=== PATIENT | female | born 1940 | race Caucasian/White ===

== ENCOUNTER 2019-01-31 11:10 | Inpatient (IN) ==
[2019-01-25 14:53] LABS: BASO# 0.03 X1000 (0.0-0.2); BASO% 0.6 % (0.0-0.8); EOS# 0.16 X1000 (0.0-0.7); EOS% 3.4 % (0.0-10.0); HEMOGLOBIN 12.6 g/dL (12.0-16.0); LYMPH% 23.1 % (20.5-51.1); MCH 30.4 PG (27-31); MCHC 33.2 g/dL (33-37); MCV 91.6 FL (81-99); MONO# 0.45 X1000 (0.11-0.59); MONO% 9.4 % (1.7-9.3); MPV 11.4 FL (7.4-10.4); NEUT# 3.03 X1000 (1.4-6.5); NEUT% 63.5 % (42.2-75.2); PLT 103 X1000 (130-400); RBC 4.15 XMIL (4.2-5.4); WBC 4.77 X1000 (4.8-10.8)
--- NOTE | 2019-01-25 15:02 | EKG Report ---
Test Performed on : 01/25/2019 2:28:00 PM Test Reason : PAT Blood Pressure : / mmHG Vent. Rate : 086 BPM Atrial Rate : 086 BPM P-R Int : 170 ms QRS Dur : 094 ms QT Int : 392 ms P-R-T Axes : 068 -06 042 degrees QTc Int : 469 ms Sinus rhythm. with frequent and consecutive premature ventricular complexes. Low voltage QRS Cannot rule out Anterior infarct (cited on or before 09-SEP-2016) Abnormal ECG When compared with ECG of 09-SEP-2016 15:32, premature ventricular complexes. are now present Nonspecific T wave abnormality no longer evident in Inferior leads T wave inversion no longer evident in Lateral leads Confirmed by Lazaro PARMAR, Rufus Styles ([id number]) on 01/26/2019 8:21:12 AM
[2019-01-25 15:14] LABS: AGAP 9; ALBUMIN 3.4 g/dL (3.5-5.0); ALKALINE PHOSPHATASE 194 U/L (32-104); BUN 14 mg/dL (8-22); CALCIUM 8.7 mg/dL (8.8-10.2); CHLORIDE 95 mmol/L (98-107); COSMO 278; CREATININE 0.8 mg/dL (0.5-0.9); ESTIMATED GFR > 60; GLUCOSE 241 mg/dL (70-104); GOT 28 U/L (10-30); GPT 16 U/L (10-36); POTASSIUM 3.7 mmol/L (3.5-5.1); SODIUM 135 mmol/L (136-145); TCO2 31 mmol/L (25-35); TOTAL BILIRUBIN 0.68 mg/dL (0.20-1.00); TOTAL PROTEIN 6.9 g/dL (6.3-8.3)
[2019-01-31] MEDS ORDERED: ENTEREG ONE (11:28)
[2019-01-31] MEDS ORDERED: LR 1,000 ML ONE (11:28)
[2019-01-31] MEDS ORDERED: INVANZ 1 GM/NS 1 GM/50 ML IVPB ONE (11:28)
[2019-01-31] MEDS ORDERED: DIPRIVAN 1% ONE (12:26)
[2019-01-31] MEDS ORDERED: NORCURON ONE (12:27)
[2019-01-31] MEDS ORDERED: XYLOCAINE-MPF 2% ONE (12:27)
[2019-01-31] MEDS ORDERED: ZOFRAN ONE ×2 (12:27→17:37)
[2019-01-31] MEDS ORDERED: QUELICIN (DOSE) ONE (12:27)
[2019-01-31] MEDS ORDERED: DECADRON ONE (12:27)
[2019-01-31] MEDS ORDERED: SODIUM CHLORIDE 0.9% 10 ML ONE ×2 (12:30→12:38)
[2019-01-31] MEDS ORDERED: FENTANYL ONE (12:32)
[2019-01-31] MEDS ORDERED: EXPAREL 1.3% ONE (12:38)
[2019-01-31] MEDS ORDERED: MARCAINE 0.25% PF ONE (12:38)
[2019-01-31 14:05] LABS: URINE SOURCE CATH
[2019-01-31] MEDS ORDERED: D50W SYRINGE ONE (14:08)
[2019-01-31 14:10] LABS: BILIRUBIN URINE NEGATIVE (NEGATIVE); BLOOD URINE NEGATIVE (NEGATIVE); COLOR YELLOW; GLUCOSE URINE NEGATIVE (NEGATIVE); KETONE URINE TRACE mg/dL (NEGATIVE); LEUKOCYTES URINE NEGATIVE (NEGATIVE); NITRITE URINE NEGATIVE (NEGATIVE); PH URINE 6.5; PROTEIN URINE TRACE mg/dL (NEGATIVE); TURBIDITY URINE CLEAR (CLEAR); UROBILINOGEN URINE NORMAL (NORMAL)
[2019-01-31 14:11] LABS: UR EPITHELIAL CELLS <10 /HPF (<10); URINE BACTERIA NEGATIVE /HPF; URINE RBC 20-40 /HPF (<10); URINE WBC <10 /HPF (<10)
[2019-01-31 14:29] LABS: INR 1.33; PROTIME 17.5 Seconds (11.0-16.0)
[2019-01-31] MEDS ORDERED: NEO-SYNEPHRINE ONE (14:53)
[2019-01-31] MEDS ORDERED: LR 500 ML ONE (17:37)
[2019-01-31] MEDS ORDERED: D5 1/2 NS 1,000 ML ONE (18:15)
[2019-01-31] MEDS ORDERED: COMPAZINE PR ONE (18:15)
[2019-01-31] MEDS ORDERED: D5 1/2 NS 1,000 ML IV SCH (18:47)
[2019-01-31 19:39] LABS: HEMATOCRIT 33.3 % (37.0-47.0)
[2019-01-31 19:49] LABS: INR 1.33; PROTIME 17.5 Seconds (11.0-16.0)
[2019-01-31] MEDS: DILAUDID IV PRN (20:04)
--- NOTE | 2019-01-31 21:08 | OPERATIVE NOTE ---
PROCEDURE DATE: 01/31/2019 PROCEDURE: Total abdominal colectomy with ileal rectostomy and diverting ileostomy. SURGEON: Dr. Joe Myers. FIRST ASSISTANT: Dr. Chairez, who was very helpful in dissection and stapling of the anastomosis, as well as Dr. Baker who assisted in dissection as well in retraction. 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 POSTOPERATIVE DIAGNOSIS: Synchronous cecal and rectal cancer. INDICATIONS: This is an 78-year-old with a cancer of the cecum and the cancer of the proximal rectum by colonoscopy. She also has known cirrhosis. DESCRIPTION OF PROCEDURE: Satisfactory general endotracheal anesthesia was achieved. The abdomen was prepped and draped in a sterile fashion. The patient was in Rob stirrups. We made a midline incision and carried our incision through the subcutaneous tissues and through the fascia. We encountered various venous collaterals which required suture ligating. After we entered the abdominal cavity, the skin incision there were a lot of adhesions up to the anterior abdominal wall from the omentum and they were vascularized with these enlarged veins. We had to carefully dissect this away from the abdominal wall using suture ligatures as well as the LigaSure device. We then began mobilizing the cecum. We finally were able to use electrocautery in the retroperitoneum to pull the cecum up out of the retroperitoneum. The mesentery was quite thick and used the LigaSure to go through it. We progressed from the cecum distally up to the hepatic flexure. We then turned our attention the pelvis and had to incise the white line of Toldt on both sides, dissected into the pelvis again. There was evidence of previous surgery from her uterus cancer, lots of scarring. We incised the perineum and dissected distal to the perineum using the LigaSure and the cautery on each side. There was raw tissue circumferentially causing some unusual amount of bleeding. We continued to dissect and then finally reached what we thought might be far enough, probably about 10 to 12 cm. We divided the colon both proximally and distally and took out the sigmoid, opened it, but there was no tumor there. Dr. Chairez it was at this point had looked up the rectum and identified the tumor which was really about 6 to 7 cm. So, we left the Allis on there and went back up and continued to dissect the transverse colon. We mobilized the splenic flexure, mobilized the hepatic flexure. We divided the mesentery of the omentum off the transverse colon, being certain that none of the venous collaterals were bleeding. We then went from proximal to distal and began incising the mesentery. We ligated the ileocolic vessels with 2-0 silk suture ligature after clamping them with a Mary. We continued with the LigaSure up in and then ligated the right colic vessels with a suture ligature, continued to the middle colic and ligated them with 2-0 silk suture ligature, divided them and continue with the LigaSure over to the left colic where we divided it and used a 2-0 silk suture ligature and carried our incision down the mesentery all the way to where we had divided the sigmoid colon proximally. We handed off the abdominal colon. We packed off the left upper quadrant and the right upper quadrant. We then turned our attention distally. We dissected down further into the pelvis until we could identify the ink and palpate the tumor. There were a lot of adhesions anterior from the previous hysterectomy. We then were able to get past the tumor and used a TA-45 blue stapler to staple the colon and the rectum and divided it, and we did identify the tumor in the specimen and we did appear to have about a 2 cm margin distally. We mobilized the ileum. We made a small ileostomy distally, introduced a 28 EEA anvil and brought it out the anti mesenteric border of the ilium placed a 3-0 silk pursestring around that spot to secure so it would not tear anymore. We then stapled off the open end we introduced the anvil, we oversewed the staple line with 3-0 silks in a Lembert fashion. The 25 and 28 dilators were passed from below by Dr. Chairez after the staple line. We then introduced the EEA stapler and extended the stem. We then attached the anvil to the stem of the stapler and the tissue was then approximated until the green was seen within the window. Dr. Chairez then stapled the anastomosis together. Upon completion of the stapling there were 2 good rings evident. I placed one 3-0 silk horizontal mattress stitch where the tissue looked rather attenuated. I then held the proximal occlusion and air was pumped into the rectum and there was no air leak whatsoever at the anastomosis. The patient did evacuate air around the proctoscope. So, the anastomosis appeared secure; however, because of the difficulty the dissection the blood loss in the previous pelvic surgery I felt it would be best that we did a diverting ileostomy and place a drain. We irrigated out the pelvis. We achieved adequate hemostasis. We did have to place some Surgicel Snow in the pelvis because of the raw surfaces. I did place a drain into the pelvis deep posterior to the anastomosis, brought out to the left lower quadrant and secured to the skin with 2-0 silk. Hemostasis was okay everywhere else. We did make a right lower quadrant incision, excised a kiana of skin carried this incision through the subcutaneous tissue and divided the anterior rectus sheath and then spread the muscles, made a posterior rectus sheath incision that would admit a couple of fingers without difficulty. We then were able to deliver the loop of the ilium probably about 10 inches proximal to the anastomosis out through the skin and a bridge was placed underneath it to hold it in position. We then proceeded to close the peritoneum with 2-0 chromic. We closed the fascia with running #2 Prolene, irrigated the subcutaneous tissue and closed the skin with ann. We covered up the staple line closure. I then placed some 3-0 Polysorb stitches from the loop of ileum to the skin and then placed an appliance flange around the hole in the abdominal wall. We opened the stoma with the electrocautery longitudinally and then placed the bag over it. The bridge stayed in position. Sterile dressing was applied. She tolerated it well. 1600 mL of blood loss was present. The patient received 3 units of blood and 2 units of fresh frozen during the case. She was sent to the recovery room in satisfactory condition. cc: MD Jalil Valerio MD Robert C. Walker, MD
[2019-01-31] MEDS ORDERED: NS 500 ML IV ONE (23:43)
[2019-01-31] MEDS ORDERED: NS 1,000 ML IV SCH (23:45)
[2019-02-01] MEDS: D5 NS 1,000 ML IV SCH ×2 (00:07→00:08)
[2019-02-01] MEDS: PERIDEX MT SCH ×3 (00:15→20:13)
[2019-02-01] MEDS: HUMALOG SUBQ SCH ×6 (00:16→19:39)
[2019-02-01 00:30] LABS: BASO# 0.01 X1000 (0.0-0.2); BASO% 0.1 % (0.0-0.8); HEMATOCRIT 31.5 % (37.0-47.0); HEMOGLOBIN 10.3 g/dL (12.0-16.0); IMM GRAN# 0.03 X1000 (0.0-0.04); IMM GRAN% 0.2 % (0.0-0.5); LYMPH# 0.45 X1000 (1.2-3.4); LYMPH% 2.9 % (20.5-51.1); MCH 29.7 PG (27-31); MCHC 32.7 g/dL (33-37); MCV 90.8 FL (81-99); MONO# 0.93 X1000 (0.11-0.59); MPV 11.5 FL (7.4-10.4); NEUT# 14.12 X1000 (1.4-6.5); NEUT% 90.8 % (42.2-75.2); PLT 101 X1000 (130-400); RBC 3.47 XMIL (4.2-5.4); RDW 15.6 % (11.5-14.5); WBC 15.54 X1000 (4.8-10.8)
[2019-02-01 00:38] LABS: CALCIUM 7.8 mg/dL (8.8-10.2); CREATININE 0.9 mg/dL (0.5-0.9); POTASSIUM 4.3 mmol/L (3.5-5.1)
[2019-02-01] MEDS ORDERED: NS 500 ML IV ONE (02:02)
--- NOTE | 2019-02-01 05:40 | Diag Imaging Result Doc PS360 ---
EXAM: CHEST-PORTABLE HISTORY: elevated WBC TECHNIQUE: Portable chest single view COMPARISON: 10/20/2018 FINDINGS: Poor inspiratory effort. The heart is not enlarged. No consolidation. No pleural effusions or lung nodules identified. IMPRESSION: No pneumonia. Electronically signed by Diego Pina 02/01/2019 5:38 AM
[2019-02-01] MEDS ORDERED: MAGNESIUM SULFATE 2 GM/S.W.I. 2 GM/50 ML IVPB IV ONE ×2 (06:10→13:30)
[2019-02-01 06:32] LABS: BASO# 0.01 X1000 (0.0-0.2); BASO% 0.1 % (0.0-0.8); HEMATOCRIT 29.3 % (37.0-47.0); HEMOGLOBIN 9.6 g/dL (12.0-16.0); LYMPH# 0.65 X1000 (1.2-3.4); LYMPH% 4.6 % (20.5-51.1); MCH 30.4 PG (27-31); MCHC 32.8 g/dL (33-37); MCV 92.7 FL (81-99); MONO# 0.82 X1000 (0.11-0.59); MONO% 5.9 % (1.7-9.3); MPV 11.9 FL (7.4-10.4); NEUT# 12.52 X1000 (1.4-6.5); NEUT% 89.4 % (42.2-75.2); PLT 87 X1000 (130-400); RBC 3.16 XMIL (4.2-5.4); RDW 15.7 % (11.5-14.5)
[2019-02-01 06:48] LABS: CALCIUM 7.3 mg/dL (8.8-10.2); CREATININE 1.1 mg/dL (0.5-0.9); POTASSIUM 4.4 mmol/L (3.5-5.1)
--- NOTE | 2019-02-01 07:04 | EKG Report ---
Test Performed on : 02/01/2019 06:54:46 AM Test Reason : eval rhythm Blood Pressure : / mmHG Vent. Rate : 084 BPM Atrial Rate : 084 BPM P-R Int : 176 ms QRS Dur : 098 ms QT Int : 408 ms P-R-T Axes : 059 004 041 degrees QTc Int : 482 ms Normal sinus rhythm. Low voltage QRS Cannot rule out Inferior infarct (cited on or before 31-JAN-2019) Cannot rule out Anterior infarct (cited on or before 09-SEP-2016) Abnormal ECG When compared with ECG of 31-JAN-2019 21:37, (Unconfirmed) Serial changes of evolving Inferior infarct present Confirmed by Lazaro PARMAR, Rufus Styles ([id number]) on 02/01/2019 9:07:15 AM
[2019-02-01] MEDS: DILAUDID IV PRN ×3 (07:33→20:54)
[2019-02-01] MEDS: POTASSIUM CHLORIDE 10 MEQ in 1/2 NS 1,000 ML IV SCH ×3 (08:05→23:54)
[2019-02-01] MEDS: ENTEREG PO SCH ×2 (08:29→20:13)
[2019-02-01] MEDS: LANTUS INSULIN SUBQ SCH (08:29)
[2019-02-01] MEDS: ALDACTONE PO SCH (08:29)
--- NOTE | 2019-02-01 09:16 | PROGRESS NOTE ---
DATE: 02/01/2019 SUBJECTIVE: This patient is resting in bed, she is complaining of abdominal pain but she is completely alert and oriented x3. It is reported a low urine output. She has been getting fluids. It looks like she has a positive balance of 4.5 L. As per the patient, she has a history of valve replacement, but she is not on anticoagulation so probably is a bioprosthetic valve. Vital signs are stable with some episodes of borderline-low pressure with a systolic blood pressure in the 90s. I am not quite sure if she had episodes of low blood pressure during the surgical procedure. OBJECTIVE: Vital Signs: Temperature 98.3 degrees, pulse 78, respiratory rate 14, blood pressure 97/47, oxygen saturation 96% on 2 L of nasal cannula. HEENT: Head normocephalic. No trauma. PERRLA. Neck: Supple. No JVD. No masses. Central trachea. Chest: Clear to auscultation. No wheezing. No rales. Mild decreased breath sounds at the bases. Abdomen: Soft, moderately distended. She does have some mild bowel sounds mostly at the level of the left upper quadrant. No signs of peritoneal irritation. She did have a dressing covering the mid part of the abdomen as well as the sides, she has a drain coming out from the left side of the abdomen and she has an ileostomy on the right side. Extremities: Trace edema. No clubbing, no cyanosis. Neurological: The patient is alert and oriented x3. No focal neurological deficits. LABORATORY DATA: WBC 14, hemoglobin 9.6, hematocrit 29.3, platelets 87,000. Sodium 142, potassium 4.4, chloride 110, bicarbonate 24, BUN 23, creatinine 1.1, glucose 312, calcium 7.3, magnesium 1.5. ASSESSMENT AND PLAN: 1. Synchronous cecal and rectal cancer, status post total abdominal colectomy with ileorectostomy and diverting ileostomy, postoperative day #1. This patient is complaining of abdominal pain, the drain is working fine as well as the ileostomy. She has some bowel sounds but they are decreased, no signs of peritoneal irritation. Abdomen is moderately distended, painful to palpation. Surgery Department on board. All the dressings are clean. No signs of bleeding at this moment. 2. History of breast cancer and uterine cancer, aware. 3. History of valve replacement, likely bioprosthetic, I think is mitral valve. We will continue with same management with an echocardiogram this morning, pending report. Cardiology Department has been consulted. I do not think we have a history of CHF on this lady. Echocardiogram done in 2016 showed a normal ejection fraction, and at that time she had a severe aortic stenosis. So, probably the valve replaced is the aortic valve and not the mitral valve. 4. History of liver cirrhosis, nonalcoholic. We will monitor for now. 5. Type 2 diabetes. I will put this patient on a low dose of insulin Lantus, and I will continue to pattern of blood sugar and sliding scale insulin, she is also getting some IV fluids. 6. Borderline-low blood pressure, this patient has been placed on IV fluids which I will continue for now. I will let Cardiology Department to decide if she needs to continue or not with this amount of fluid. So far, we have a positive balance of 4.5 L, but the urine output is low. 7. Acute kidney injury, continue with IV fluids. We will monitor this closely. Probably related to low blood pressure. I am not quite sure if this patient had an episode of low blood pressure during the procedure. 8. Hypomagnesemia, we have replaced electrolytes. CRITICAL CARE TIME: 40 minutes. cc: Smith Stacy MD
--- NOTE | 2019-02-01 09:26 | EKG Report ---
Test Performed on : 01/31/2019 9:37:32 PM Test Reason : CCU. No order in [place] Blood Pressure : / mmHG Vent. Rate : 088 BPM Atrial Rate : 088 BPM P-R Int : 176 ms QRS Dur : 106 ms QT Int : 502 ms P-R-T Axes : 062 -09 -46 degrees QTc Int : 607 ms Normal sinus rhythm. Low voltage QRS Possible Inferior infarct (cited on or before 25-JAN-2019) Anterior infarct (cited on or before 09-SEP-2016) Lateral injury pattern Prolonged QT ACUTE AR / STEMI Abnormal ECG When compared with ECG of 31-JAN-2019 21:36, (Unconfirmed) Serial changes of Inferior infarct present Confirmed by Lazaro PARMAR, Rufus Styles ([id number]) on 02/02/2019 10:18:31 AM
--- NOTE | 2019-02-01 10:17 | GENERAL SURGERY PROGRESS NOTE ---
DATE: 02/01/2019 DATE AND TIME OF EXAM: Date is 02/01 at 0850 hours in the morning. SUBJECTIVE: She is postop day 1 after total abdominal colectomy with an ileal rectostomy and a proximal diverting ileostomy. Her heart rate is 90, blood pressure is 103/64. She is awake, alert and oriented. Her urine output has been somewhat marginal overnight, around 215 mL. She has put quite a bit of serous fluid out her YOLI drain. LABORATORY DATA: White count 14,000, hemoglobin 9.6, hematocrit 29.3. Sodium 142, potassium 4.2, chloride 110, carbon dioxide 24. BUN 23, creatinine 1.1. Glucose is over 300. ASSESSMENT: 1. Postoperative abdominal colectomy with ileal rectostomy. Her stoma is viable. Her hemodynamics were satisfactory. 2. Ventricular ectopy. She has seen Dr. Galvan in the past. He will evaluate her today. She has had an echocardiogram this morning. Her potassium is 4.4. Troponin level was okay at less than 0.10. Magnesium level is 1.5. 3. Cirrhosis of the liver. There has been no evidence of ongoing bleeding. Her hemoglobin is 9.6 and hematocrit 29; some of that is dilutional. We will check her clotting studies in the morning. PLAN: The plan will be to remove her dextrose from her IV fluids in view of her elevated blood glucose. Also convert her to half-normal saline in view of the fact that she does have cirrhosis and will tend to dump fluid into her abdominal cavity and form ascites. Will recheck her labs tomorrow. Will put her back on her Aldactone and she is on Entereg. cc: MD Smith Patel MD
[2019-02-01] MEDS: LASIX PO SCH (14:00)
--- NOTE | 2019-02-01 14:10 | CARDIOLOGY CONSULTATION ---
DATE: 02/01/2019 HISTORY OF PRESENT ILLNESS: Ms. Hernandez is an 78-year-old, lady, who underwent surgery. Cardiology was consulted for abnormal EKG. Electrocardiogram revealed artifact. There were no acute ST-T changes. Electrocardiogram this morning revealed normal sinus rhythm. Cannot rule out old septal AZ and inferior Q-waves were noted. No acute ST-T changes. Patient does not complain of chest pain. Telemetry revealed normal sinus rhythm. Premature ventricular beats were noted. The patient was admitted. He has cecal and rectal cancer. He underwent a total abdominal colectomy with ileal rectostomy and diverting ileostomy on 01/31/2019. The patient has been advanced to [facility]FO Labs currently. She does not complain of any chest pain. No worsening shortness of breath. Patient complains of feeling weak. PAST MEDICAL HISTORY: Aortic stenosis status post TAVR on 10/28/2016 with Felix KATHERINE 23 mm aortic valve, hypertension, diabetes, cirrhosis of liver without mention of alcohol, history of breast cancer, obesity. HOME MEDICATIONS: Included Lantus insulin, Arimidex, Lasix 40, spironolactone 25, metolazone as needed, enteric-coated aspirin and Prilosec. ALLERGIES: She is allergic to morphine, Phenergan, tetanus. SOCIAL HISTORY: She does not smoke, does not drink. PHYSICAL EXAMINATION: Vital Signs: Blood pressure was 103/45. Soft systolic murmur noted. Respiratory system: Normal air entry. There are no crepitations or rhonchi. Abdomen: Tender from recent surgery. Central nervous system: Alert, moving all 4 extremities. Detailed central nervous system examination not performed. ASSESSMENT AND PLAN: 1. David Butt is an 78-year-old lady, who underwent a total abdominal colectomy with ileal rectostomy and diverting ileostomy for cecal and rectal cancer. From a cardiac standpoint, she has had transcatheter aortic valve replacement on 10/28/2016, has history of hypertension, diabetes. Her telemetry reveals normal sinus rhythm with frequent premature ventricular beats. Her magnesium was 1.5. Potassium was normal. We will replete her magnesium. 2. She is positive for intravenous fluids, more than 4 liters. Given this we will restart her on Lasix 40 and continue with the Aldactone and aspirin. She had an echocardiogram done today, which will be read shortly. Thank you for the consult. We will follow hospital course. cc: MD Smith Kang MD
--- NOTE | 2019-02-01 15:04 | ECHO REPORT ---
ORDER DATE: 02/01/2019 INDICATION: Arrhythmia, history of aortic stenosis, status post valve replacement. FINDINGS: 1. The right atrium appears normal in size at 3.8 cm. 2. Mild tricuspid regurgitation. RV systolic pressure of 41. 3. Normal RV size and systolic function. 4. Trace pulmonic insufficiency. 5. Mild left atrial enlargement with a dimension of 4.3 cm. 6. No mitral valve prolapse. Trace mitral regurgitation. 7. Normal LV size, end-diastolic dimension of 5.1. Normal wall thicknesses with a posterior and interventricular septal wall thickness of 1.1 cm each. Normal LV systolic function. Estimated EF is 65% with normal wall motion. 8. There is a well-seated prosthetic in the aortic position with a peak and mean gradient of 31 and 17 respectively. There is no evidence of significant perivalvular leak. 9. Aorta appears normal in visualized segments. 10. No pericardial effusion seen. cc: MD Noah Velazquez CRNP Omar J. Sosa-Chirinos, MD
--- NOTE | 2019-02-01 22:31 | CONSULTATION ---
DATE OF CONSULTATION: 01/31/2019 REASON FOR CONSULTATION: EKG changes. HISTORY OF PRESENT ILLNESS: Ms. Hernandez is an 78-year-old female who underwent a total abdominal colectomy with ileal recto-ostomy and diverting ileostomy by Dr. Myers. This was related to having fecal and rectal cancer. Her EKG was reviewed. She was having increased PVCs. There were no acute ST or T-wave changes. The patient had no chest pain. Will order additional laboratory data and follow the patient along with Surgery. PAST MEDICAL HISTORY: 1. Diabetes mellitus type 2. 2. Aortic stenosis. 3. Nonalcoholic cirrhosis. 4. GERD. 5. Kidney stones. 6. Uterine cancer. 7. Breast cancer. PREVIOUS SURGICAL HISTORY: 1. Cholecystectomy. 2. Hysterectomy. 3. Breast lumpectomy. 4. Right total hip arthroplasty. 5. Bilateral cataract surgery 6. Lumbar laminectomy. 7. Umbilical hernia repair. 8. Total colectomy performed on January [address] Myers. 9. Valve replacement (I believe she has a mechanical aortic valve). ALLERGIES: Morphine, Phenergan and tetanus toxoid. SOCIAL HISTORY: No tobacco, alcohol or illicit drugs. FAMILY HISTORY: Mother had diabetes and hypertension. Father had coronary artery disease and valvular disease. MEDICATIONS: 1. Lasix 40 mg p.o. b.i.d. 2. Aspirin 81 mg p.o. daily. 3. Potassium 20 mEq p.o. b.i.d. 4. Omeprazole 20 mg p.o. daily. 5. Lantus sliding scale. 6. Vitamin D 5000 units p.o. daily. 7. Meclizine 25 mg p.o. p.r.n. 8. Spironolactone 25 mg p.o. daily. 9. Metolazone 2.5 mg p.o. daily. 10.Lactulose 10 mg p.o. daily. 11.Magnesium 250 mg p.o. b.i.d. 12.Erythromycin 500 mg p.o. daily. 13.Fluconazole 100 mg p.o. daily. REVIEW OF SYSTEMS: A 14-point review of systems was conducted with the patient. She complained of some abdominal pain at the surgical site but otherwise denied complaints. All other systems were reviewed and found to be negative. Other pertinent positives for consultation are listed above in the HPI. PHYSICAL EXAMINATION: Vital Signs: No clubbing, cyanosis, or edema, 2+ pedal pulses. Genitourinary: No bladder distention. Very scant, concentrated-looking urine draining into Rodriguez bag. Neurologic: Alert and oriented x3. No focal motor deficits. Otherwise nonfocal examination. DIAGNOSTIC DATA: EKG shows increased PVCs, a mildly widened QRS, no acute ST or T-wave abnormality. LABORATORY DATA: Has been ordered and is pending. ASSESSMENT/PLAN: 1. Increased premature ventricular contractions on electrocardiogram. Will check magnesium and potassium and replete if necessary. She has a history of aortic valve replacement, hypertension and diabetes. Will consult Cardiology to follow along with us. 2. Decreased urine output. No recent laboratory data. Will evaluate for elevated BUN and creatinine. Will given the patient a 1-liter bolus at this time, as she is marginally hypotensive as well. She did receive a blood transfusion and fresh frozen plasma after surgery. She is not exhibiting any symptoms of fluid volume overload. 3. Diabetes mellitus with hyperglycemia. Will start the patient on sliding- scale insulin every 4 hours with fingerstick blood sugar. May benefit from addition of long-acting insulin. 4. Status post total colectomy. Continue to monitor her hemoglobin and hematocrit. 5. Further recommendations per patient's clinical course. We thank Dr. Myers for this consultation. Dictated by LYNDSEY Weiss for Aristides Rooney MD I have perfomed a face to face diagnostic evaluation. Labs/ xrays -reviewed. Exam - chest- clear, CV- regular. A/P PVC's . Hyperglycemia- Admit , Monitor on telemetry, Consult cardiology, Monitor Blood, glucose and sliding scale insulin. Dr. Rooney cc: LYNDSEY Weiss MD Omar J. Sosa-Chirinos, MD Crystal V. Walker MTDD
[2019-02-02] MEDS: HUMALOG SUBQ SCH ×6 (01:07→20:32)
[2019-02-02 06:01] LABS: BASO# 0.01 X1000 (0.0-0.2); BASO% 0.1 % (0.0-0.8); EOS# 0.01 X1000 (0.0-0.7); EOS% 0.1 % (0.0-10.0); HEMATOCRIT 28.2 % (37.0-47.0); HEMOGLOBIN 8.9 g/dL (12.0-16.0); LYMPH% 7.4 % (20.5-51.1); MCH 29.9 PG (27-31); MCHC 31.6 g/dL (33-37); MCV 94.6 FL (81-99); MONO% 7.4 % (1.7-9.3); MPV 11.7 FL (7.4-10.4); NEUT# 12.69 X1000 (1.4-6.5); PLT 91 X1000 (130-400); RBC 2.98 XMIL (4.2-5.4); RDW 15.4 % (11.5-14.5); WBC 14.91 X1000 (4.8-10.8)
[2019-02-02 06:12] LABS: INR 1.19; PROTIME 16.1 Seconds (11.0-16.0); PTT 32.1 Seconds (22.3-41.8)
[2019-02-02 06:37] LABS: CALCIUM 7.8 mg/dL (8.8-10.2); MAGNESIUM 2.5 mg/dL (1.5-2.7); POTASSIUM 4.7 mmol/L (3.5-5.1)
[2019-02-02] MEDS: POTASSIUM CHLORIDE 10 MEQ in 1/2 NS 1,000 ML IV SCH ×2 (07:35→16:52)
--- NOTE | 2019-02-02 08:05 | EKG Report ---
Test Performed on : 02/02/2019 07:19:18 AM Test Reason : tachycardia Blood Pressure : / mmHG Vent. Rate : 090 BPM Atrial Rate : 090 BPM P-R Int : 172 ms QRS Dur : 100 ms QT Int : 382 ms P-R-T Axes : 045 016 061 degrees QTc Int : 467 ms Sinus rhythm. with frequent and consecutive premature ventricular complexes. Anterior infarct (cited on or before 09-SEP-2016) Abnormal ECG When compared with ECG of 01-FEB-2019 06:54, premature ventricular complexes. are now present Confirmed by Lazaro PARMAR, Rufus Styles ([id number]) on 02/02/2019 10:23:52 AM
[2019-02-02] MEDS: ENTEREG PO SCH ×2 (08:17→21:13)
[2019-02-02] MEDS: PERIDEX MT SCH ×2 (08:18→21:14)
[2019-02-02] MEDS: ALDACTONE PO SCH (08:18)
[2019-02-02] MEDS: LANTUS INSULIN SUBQ SCH (08:20)
--- NOTE | 2019-02-02 08:21 | Diag Imaging Result Doc PS360 ---
EXAM: CHEST-PORTABLE - 02/02/2019 HISTORY: dyspnea TECHNIQUE: Portable chest COMPARISON: 02/01/2019 FINDINGS: There is elevation right hemidiaphragm similar to prior. There is subsegmental atelectasis at the bilateral lung bases which appears overall slightly increased. The upper lungs appear essentially clear. There is possible tiny bilateral pleural effusions. There is no pneumothorax identified. The right heart border is partially obscured by the elevated hemidiaphragm but heart size appears grossly normal. IMPRESSION: Elevation of right hemidiaphragm similar to prior. Bibasilar subsegmental atelectasis which appears mildly increased from prior. Possible tiny bilateral pleural effusions. Electronically signed by Camacho Acuña 02/02/2019 8:19 AM
--- NOTE | 2019-02-02 08:30 | PROGRESS NOTE ---
DATE: 02/02/2019 SUBJECTIVE: This patient is resting comfortably in bed. She is not complaining of chest pain. She is complaining of some abdominal pain from her surgery. Her urine output has decreased. We started yesterday Lasix 40 p.o. daily recommended by Cardiology Department. Her creatinine increased from admission. Initially, was 0.8, yesterday 1.1, and today is 2. Her urine output dropped to around 50 mL/h, even though she has a positive balance of 6.8 L. Glucose is better controlled. I will continue with the same management. I have requested an evaluation by Gastroenterology Department. OBJECTIVE: Vital Signs: Temperature 98.6 degrees, pulse 78, respiratory rate 15, blood pressure 93/40, and oxygen saturation 96% on 2 L of nasal cannula. HEENT: Head normocephalic. No trauma. PERRLA. Neck: Supple. No JVD. Central trachea. Chest: Decreased breath sounds at the bases. Abdomen: Soft. Generalized tenderness to palpation mostly at the level of the perioperative area and right upper quadrant. No signs of peritoneal irritation. She has a dressing covering the mid part of the abdomen. Her drain has been removed, and she has an ileostomy on the right side that is working fine. Extremities: No edema. No clubbing. No cyanosis. Neurological: The patient is alert. She is oriented x3. No focal neurological deficits. LABORATORY: WBC 14.9, hemoglobin 8.9, hematocrit 28.2, and platelets 91,000. Sodium 138, potassium 4.7, chloride 108, bicarbonate 23, BUN 37, creatinine 2, glucose 129, calcium 7.8, and magnesium 2.5. ASSESSMENT AND PLAN: 1. Synchronous cecal and rectal cancer, status post total abdominal colectomy with ileorectostomy, and diverting ileostomy, postoperative day #2. She is still complaining of abdominal pain, but compared with yesterday she feels better. No signs of peritoneal irritation. Her drain has been removed. She does have some bowel sounds. 2. Acute kidney injury. Upon admission, her creatinine was 0.8 and today is 2. Her urine output decreased to 15 mL/h even though she has a positive balance of 6.8 L. I will continue with the IV fluids for now. She is not symptomatic, and I will let Nephrology Department to evaluate this patient. 3. History of aortic valve replacement. Cardiology Department on board. We will follow their recommendations. No chest pain at this moment. 4. History of breast cancer and uterine cancer, aware. 5. History liver cirrhosis, known alcoholic. We will monitor for now. She has been placed back on Lasix and spironolactone. 6. Type 2 diabetes. She seems to be more stable. We will monitor, and continue with the same management. 7. Borderline low blood pressure. At this moment, I will continue with IV fluids. She has been placed on diuretics by Cardiology Department. She is due for furosemide at 2:00 in the afternoon. I will wait for Nephrology Department evaluation as well. So far, we have a positive balance of 6.8 L. 8. Hypomagnesemia, resolved. 9. Normocytic anemia, stable. We will continue to monitor. CRITICAL CARE TIME: 30 plus minutes. cc: Smith Stacy MD
[2019-02-02] MEDS: DILAUDID IV PRN ×2 (09:01→21:13)
[2019-02-02] MEDS ORDERED: ALBUMIN 25% IV ONE (11:13)
--- NOTE | 2019-02-02 12:11 | GENERAL SURGERY PROGRESS NOTE ---
DATE: 02/02/2019 SUBJECTIVE: She is postop day 2 after a total abdominal colectomy and ileal rectostomy with a diverting ileostomy. OBJECTIVE: Vitals: She is afebrile, heart rate is 82, blood pressure is 85-90 systolic. Lungs: She has clear breath sounds. DIAGNOSTIC DATA: Intake was 3160, output 840. She is putting out fluid in her ileostomy. Her Brenden drain has been removed. She denies any nausea currently. Laboratory data: White count 14,900, hemoglobin 8.9, hematocrit 28. ProTime 16. INR 1.2. PTT 32. Sodium 138, potassium 4.7, chloride 108, carbon dioxide 23, BUN 37, creatinine 2. Sugars are in the low 100s. Magnesium 2.5. ASSESSMENT: 1. Post abdominal colectomy with ileostomy. She is putting fluid out her ileostomy. Her stoma is viable. We will allow her to have some sips of liquids. 2. Ectopy. It seems to have decreased. Her magnesium level is normal. We will continue to monitor that. 3. Acute kidney injury. I am sure this is related to 3rd spacing in her abdominal cavity in addition to her cirrhosis and ascites. So her fluid is simply not staying in her vascular system and we may benefit from using albumin to try to keep her fluid inside her vessels to perfuse her kidney. 4. Cirrhosis of the liver. There is no evidence of bleeding. Her INR, PT and PTT are normal. So, the plan will be to allow her to have sips of liquids. We will continue to monitor her kidney function. I will give her some albumin. cc: MD Smith Patel MD
[2019-02-02 13:54] LABS: URINE SOURCE CATH
[2019-02-02 14:01] LABS: BILIRUBIN URINE NEGATIVE (NEGATIVE); BLOOD URINE SMALL (NEGATIVE); COLOR YELLOW; GLUCOSE URINE NEGATIVE (NEGATIVE); KETONE URINE NEGATIVE (NEGATIVE); LEUKOCYTES URINE MODERATE (NEGATIVE); NITRITE URINE NEGATIVE (NEGATIVE); PROTEIN URINE TRACE mg/dL (NEGATIVE); SP GRAVITY URINE 1.011; TURBIDITY URINE CLEAR (CLEAR); UROBILINOGEN URINE NORMAL (NORMAL)
[2019-02-02 14:07] LABS: UR EPITHELIAL CELLS <10 /HPF (<10); URINE BACTERIA NEGATIVE /HPF; URINE RBC <10 /HPF (<10)
[2019-02-02 14:18] LABS: URINE CASTS NONE SEEN; URINE YEAST NONE SEEN
--- NOTE | 2019-02-02 16:05 | NEPHROLOGY CONSULTATION ---
DATE: 02/02/2019 REASON FOR ADMISSION: To undergo surgery for a total abdominal colectomy with ileorectostomy and diverting ileostomy per Dr. Myers with assistance per Dr. Chairez and Dr. Baker. HPI: The patient has synchronous cecal and rectal cancer with known cirrhosis secondary to these findings, she was scheduled for surgery on the . During her hospital stay, her initial creatinine was 0.9 on admission. It is now up to 2. During surgery, had received fresh frozen plasma and platelets. Initial hemoglobin of 10.3, platelets on the had dropped to 87 and currently are at 91. She has a colostomy bag and drain. First YOLI drain is putting out large amounts. Urinary Rodriguez is putting out approximately 340 ml which is greater than yesterday. Due to these findings, we have been consulted for further workup and evaluation. Renal ultrasound is currently pending. Urine electrolytes are to be sent down. She is currently receiving IV fluid resuscitation. Yesterday she had received 1 L of normal saline IV push during the night for a drop in blood pressure. She currently has half-normal saline with KCl infusing at 125 mL an hour. She has been given Lasix 40 mg daily along with her spironolactone 25 mg daily. We will await our urine electrolytes to determine further fluid resuscitation. She currently is n.p.o. She denies any chest pain or increased work of breathing. No fever or chills. No nausea, vomiting, no diarrhea. She has colostomy bag putting out large amounts of dark colored liquid. She is noted to have some fine tremors to her upper bilateral extremities. Daughter at the bedside, states that these were there prior to her admission. PAST MEDICAL HISTORY: Aortic stenosis status post TAVR on 10/28/2016. She has hypertension, diabetes mellitus type 2, cirrhosis of the liver without mention of alcohol, history of breast cancer, obesity, colon cancer, rectal cancer. SURGICAL HISTORY: Recent TAVR on 10/28/2016 with aortic valve, recent abdominal colectomy with ileorectostomy and diverting ileostomy performed on the . SOCIAL HISTORY: She has a daughter who is attentive to her care. Does not use tobacco, alcohol or illicit drug use. The patient is a DNR level 1. FAMILY HISTORY: Noncontributory. ALLERGIES: Listed as codeine, morphine, promethazine hydrochloride, tetanus and diphtheria toxoids. HOME MEDICATIONS: Include: 1. Lantus. 2. Arimidex. 3. Lasix. 4. Spironolactone. 5. Metolazone. 6. Enteric-coated aspirin. 7. Prilosec. REVIEW OF SYSTEMS: Times 10 with pertinent positives listed above in the HPI. MOST RECENT VITAL SIGNS: Her temperature 98.6, blood pressure at the time of exam 110/41, heart rate 84, respirations are 22. She is currently on 2 L nasal cannula. The last recorded saturation is 95%. She has had 3160 in, 840 out. She is in a 6.8 L fluid positive balance in the last 48 hours. LABORATORY DATA: Sodium is 138, potassium 4.7, chloride 108, CO2 23, BUN 37, creatinine 2. Her glucose is 129. Her anion gap is 7, calcium is 7.8, magnesium is 2.5. Her white count 14.91, hemoglobin 8.9, hematocrit 28.2, platelet count is 91,000 today. Her coagulation indicates a PT is 16.1, INR 1.19, PTT 32.1. Urinalysis is positive for proteinuria, ketones with urine electrolytes pending. PHYSICAL EXAMINATION: General: This is an 78-year-old white female. She is resting quietly. The head of the bed is elevated. She appears chronically ill. She is in no acute distress. Skin: Warm and dry. HEENT: Normocephalic, atraumatic. Conjunctiva is pale. She has EPIFANIO. Mucous membranes are dry. Neck: Supple. Trachea midline. No evidence of JVD. Cardiovascular: She is regular rate and rhythm on the monitor. She has a systolic murmur present. Lungs: Clear to auscultation bilaterally, equal excursion on O2. Abdomen: Tender to touch. Dressing remains to the right mid quadrant. She has an ostomy bag to her right upper quadrant, YOLI drain to the right lower. Perianal area not inspected. Genitourinary: Not inspected. Rodriguez catheter is in place with dark yellow urine in the bag. Extremities: She currently has no edema. No clubbing or cyanosis. Neurological: She is alert to person and to place. She does have fine tremors to her bilateral upper extremities noted with increase with purposeful movement. ASSESSMENT AND PLAN: 1. Acute kidney injury. This could be multifactorial secondary to fluid volume depletion. We will wait for urine electrolytes to indicate if we need to have further fluid volume resuscitation. Agree with continuing her IV fluids at 125 mL an hour with potassium replacement. May need to hold 1 of her diuretic medications during her hospital stay and monitor her electrolytes on a daily basis. No indications for intervention in regards with changing antibiotics or dialysis intervention. 2. Electrolytes and acid-base balance. These are acceptable. 3. Anemia. This remains stable. 4. Leukocytosis. Patient's white count has been up to 14.91. We will defer to the primary care team and surgery team for placement on antibiotics. We will evaluate renal dosing when done. 5. Status postop day #2 per abdominal colectomy, ileorectostomy and diverting ileostomy. This is being followed by Dr. Myers. I would like to thank you for allowing us to follow with this patient. Dictated by LYNDSEY Gonzales for Donny Landin MD cc: LYNDSEY Gonzales MD Omar J. Sosa-Chirinos, MD [facility]
[2019-02-02] MEDS: LASIX PO SCH (17:21)
--- NOTE | 2019-02-02 18:31 | Diag Imaging Result Doc PS360 ---
EXAM: US RENAL 2 (RETROPER) COMPLETE - 02/02/2019 HISTORY: ANGELINE TECHNIQUE: Bilateral renal ultrasound COMPARISON: None. FINDINGS: The right kidney measures 12.2 x 5 x 5.7 cm in size, with cortical thickness of approximately 0.9 cm. The left kidney measures 11.3 x 4.6 x 4.4 cm in size, with cortical thickness of approximately 1 cm. There is mild fullness of the right renal collecting system. There is no left hydronephrosis identified. There is no renal mass or stone identified. The urinary bladder is not well enough visualized for evaluation due to limited distention of the lumen artifacts from nearby bowel gas. There is apparent ascites noted the right upper quadrant abdomen. IMPRESSION: Possible mild right hydronephrosis. No other visible renal abnormality. There is apparent ascites noted at the right upper quadrant abdomen. Electronically signed by Camacho Acuña 02/02/2019 6:28 PM
[2019-02-03] MEDS: POTASSIUM CHLORIDE 10 MEQ in 1/2 NS 1,000 ML IV SCH (00:37)
[2019-02-03] MEDS: DILAUDID IV PRN ×3 (00:40→20:36)
[2019-02-03] MEDS: HUMALOG SUBQ SCH ×5 (00:41→15:33)
[2019-02-03 06:35] LABS: ALB/GLOB RATIO 1.1; ALBUMIN 2.5 g/dL (3.5-5.0); CALCIUM 7.2 mg/dL (8.8-10.2); CREATININE 1.9 mg/dL (0.5-0.9); POTASSIUM 5.4 mmol/L (3.5-5.1); TOTAL BILIRUBIN 0.61 mg/dL (0.20-1.00); TOTAL PROTEIN 4.7 g/dL (6.3-8.3)
[2019-02-03 07:01] LABS: EOS# 0.03 X1000 (0.0-0.7); EOS% 0.4 % (0.0-10.0); HEMATOCRIT 25.3 % (37.0-47.0); HEMOGLOBIN 8.1 g/dL (12.0-16.0); LYMPH# 0.62 X1000 (1.2-3.4); MCH 29.7 PG (27-31); MCV 92.7 FL (81-99); MONO# 0.57 X1000 (0.11-0.59); MONO% 8.3 % (1.7-9.3); MPV 10.8 FL (7.4-10.4); NEUT# 5.65 X1000 (1.4-6.5); NEUT% 82.3 % (42.2-75.2); PLT 63 X1000 (130-400); RBC 2.73 XMIL (4.2-5.4); RDW 14.7 % (11.5-14.5); WBC 6.87 X1000 (4.8-10.8)
[2019-02-03] MEDS: 1/2 NS 1,000 ML IV SCH ×2 (08:06→21:29)
[2019-02-03] MEDS: ENTEREG PO SCH ×2 (08:06→20:22)
[2019-02-03] MEDS: ALDACTONE PO SCH (08:07)
[2019-02-03] MEDS: PERIDEX MT SCH ×2 (08:07→20:22)
[2019-02-03] MEDS: LASIX PO SCH (08:07)
[2019-02-03] MEDS: LANTUS INSULIN SUBQ SCH (08:25)
--- NOTE | 2019-02-03 11:39 | PROGRESS NOTE ---
DATE: 02/03/2019 SUBJECTIVE: The patient is resting comfortably in bed. She is not complaining of any specific pain today. Some abdominal discomfort, soreness. Her urine output increased a little bit in the past 24 hours. We will stop the Lasix, and we will continue with IV fluids. OBJECTIVE: Vital Signs: Temperature 98.6 degrees, pulse 71, respiratory rate 12, blood pressure 110/43, oxygen saturation 97% on 2 L of nasal cannula. HEENT: Head normocephalic. No trauma. PERRLA. Neck: Supple. No JVD. No masses. Central trachea. Chest: Decreased breath sounds at the bases. Abdomen: Soft. Generalized tenderness to palpation, mostly at the level of the perioperative area and right upper quadrant. No signs of peritoneal irritation. She has a dressing covering the mid part of the abdomen. Her drain has been removed, and she has an ileostomy on the right side that is working fine. Extremities: No edema, no clubbing, no cyanosis. Neurological: The patient is alert and oriented x3. No focal deficits, but generalized weakness. LABORATORY DATA: WBC 6.8, hemoglobin 8.1, hematocrit 25.3, platelets 63,000. Sodium 136, potassium 5.4, chloride 108, bicarbonate 22, BUN 42, creatinine 1.9, glucose 132, calcium 7.2. AST 22, ALT 13, alkaline phosphatase 83, albumin 2.5. ASSESSMENT AND PLAN: 1. Synchronous cecal and rectal cancer, status post total abdominal colectomy with ileostomy and diverting ileostomy, postoperative day number 2. She is still complaining of abdominal pain, but compared with the previous days, she is better. No signs of peritoneal irritation. Drain has been removed. She does have some bowel sounds. 2. Acute kidney injury. She is making a little bit more of urine. She has a positive balance of 8 liters. We will stop the furosemide, and we will continue with fluids. Case has been discussed with Nephrology Department. 3. History of aortic valve replacement. Cardiology on board. Continue with the same management. 4. History of breast cancer and uterine cancer. Aware. 5. History of nonalcoholic liver cirrhosis. We will continue to monitor for now. Continue only with spironolactone. We will hold her Lasix. 6. Type 2 diabetes. She seems to be stable with the current dose of Lantus. I will continue with the same management. 7. Borderline low blood pressure. We will continue with the intravenous fluids. We will stop the furosemide. We will monitor. 8. Hypomagnesemia, resolved. 9. Normocytic anemia, stable. CRITICAL CARE TIME: 35 minutes. cc: Smith Stacy MD
[2019-02-03] MEDS ORDERED: ALBUMIN 25% IV ONE (12:07)
--- NOTE | 2019-02-03 13:53 | NEPHROLOGY PROGRESS NOTE ---
DATE: 02/03/2019 TIME SEEN: 0725. SUBJECTIVE: Ms. Hernandez is resting quietly in bed. She states that she is feeling just a little bit better today. She has no acute distress. OBJECTIVE: VITAL SIGNS: Her temperature is 97.8, blood pressure 97/41 heart rate is 69, respirations are 18. She is on 2 L nasal cannula. Last recorded saturation 97%. She has had 2100 in, she has had 865 out to Rodriguez catheter. LABORATORY DATA: Sodium 136, potassium 5.4, chloride 108, CO2 22, BUN 42, creatinine 1.9, glucose is 132. Her anion gap is 6. Her calcium 7.2, albumin 2.5. White count 6.87, hemoglobin 8.1, hematocrit 25.3 with a platelet count of 63,000. The patient had a fractionated urea score of 24.15, indicating the patient is prerenal with volume depletion. IMAGING: Her renal ultrasound indicates the right kidney measuring 12.2, left kidney is 11.3, questionable mild right hydronephrosis. PHYSICAL EXAMINATION: General: This is an 78-year-old white female. She is resting quietly in bed. She appears in no acute distress. Skin: Warm and dry. HEENT: Normocephalic, atraumatic. Conjunctiva is pale. She has EPIFANIO. Mucous membranes are dry. Neck: Supple. Trachea midline. No evidence of JVD in the upright position. Cardiovascular: She is regular rate and rhythm on the monitor. She has a systolic murmur. Lungs: Clear to auscultation bilaterally. Equal excursion on O2. Abdomen: Again, slightly tender to touch. Dressing remains to the right mid quadrant. She has an ostomy bag to the right upper quadrant. YOLI drain remains intact. Perianal area not inspected. Genitourinary: Not inspected. Rodriguez catheter is in place with dark yellow urine. Extremities: No edema, no clubbing, or cyanosis. Neurological: She is alert to person and to place. She remains with fine tremors to her upper extremities. ASSESSMENT AND PLAN: 1. Acute kidney injury. Again, this is multifactorial. Patient has a fractionated urea score of 24.15% indicating she is in a fluid volume deficit. She continues with her IV fluids of D5 half-normal at 80 mL an hour. We will stop her Lasix today and continue on her spironolactone for her cardiac effect. She does appear to have a right hydronephrosis. We will consult Urology for monitoring and evaluation. Adequate urine output is documented. 2. Electrolytes and acid-base balance. She has mild hyperkalemia. No indications for intervention. 3. Anemia. This remains low but stable. 4. Status postoperative day #3 for abdominal colectomy, ileorectostomy and diverting ileostomy. Again, this is followed by Dr. Myers. I would like to thank you for allowing us to follow with this patient. Dictated by LYNDSEY Gonzales for Donny Landin MD cc: LYNDSEY Gonzales MD Omar J. Sosa-Chirinos, MD
--- NOTE | 2019-02-03 15:12 | CARDIOLOGY PROGRESS NOTE ---
DATE: 02/03/2019 FOLLOWUP NOTE: 1. Cardiology was consulted for abnormal EKG with frequent premature ventricular beats. 2. The patient is status post surgery for rectal and cecal cancer. Underwent total abdominal colectomy with ileal rectostomy and diverting ileostomy on 01/31/2019. 3. Aortic stenosis status post TAVR 10/28/2016. 4. Hypertension. 5. Diabetes. 6. Cirrhosis of liver. Patient postop day #3. PHYSICAL EXAMINATION: Vital Signs: Vital signs are stable. She has occasional premature ventricular beats. Blood pressure is stable. Heart: First and second heart sounds were heard. There was a soft systolic murmur. Respiratory: Decreased breath sounds at base. Abdomen: Abdomen soft. LABORATORY: WBC 6.8, hemoglobin 8.1, hematocrit 25. Sodium 136, potassium 5.4, BUN 42, creatinine 1.9. PLAN: 1. From a cardiac standpoint, I have not made any changes. She has occasional premature ventricular beats. There is no ventricular tachycardia. 2. Status post aortic valve replacement by TAVR. Cardiac function stable. 3. Status post recent surgery. Some abdominal discomfort. Otherwise, progressing. She had electrolyte imbalance which has been corrected. She has renal insufficiency. Lasix was discontinued. 4. Continue current management. Thank you. We will follow the hospital course. cc: MD Smith Kang MD
--- NOTE | 2019-02-03 16:07 | GENERAL SURGERY PROGRESS NOTE ---
DATE: 02/03/2019 SUBJECTIVE: Pat seems to be a bit improved. OBJECTIVE: Her heart rate is 78, blood pressure is 116/47. Intake 2100, output 865, urine output was 565. She put out 300 mL in her ileostomy bag. LABORATORY DATA: Laboratory today: White count 6800, hemoglobin 8.1, hematocrit 25, potassium up to 5.4. BUN 42, creatinine 1.9. ASSESSMENT: 1. Post abdominal colectomy. Bowel sounds are present. I will start to give her some clear liquids. Her ectopy seems to have resolved. 2. Her creatinine hopefully is stabilized at 1.9. I will give her some albumin again today in hopes that we could mobilize more fluid. 3. Her liver cirrhosis seems to be stable. I did remove her potassium from her IV fluids. cc: MD Smith Patel MD MTDD
--- NOTE | 2019-02-03 23:59 | CONSULTATION ---
DATE OF CONSULTATION: 02/03/2019 CHIEF COMPLAINT: Acute kidney injury and hydronephrosis. HISTORY OF PRESENT ILLNESS: Ms. Hernandez is an 78-year-old with type 2 diabetes, aortic stenosis, nonalcoholic cirrhosis, GERD, history of kidney stones, uterine cancer, breast cancer, and recently diagnosed colon cancer. The patient presented in consultation regarding right hydronephrosis and acute kidney injury. The patient recently underwent a total abdominal colectomy with diverting ileostomy by Dr. Myers due to cecal and colonic cancer. Per report, it was a difficult case due to prior radiation and surgical procedures. The patient was admitted to the ICU postoperatively and has done relatively well; however, the patient did develop some acute kidney injury with creatinine elevated up to 2 yesterday, and it is 1.9 today. Renal ultrasound was performed yesterday, which showed a mild to moderate amount of right hydronephrosis. Urology was consulted for further recommendations. The patient has a history of prior kidney stones, and these were removed many years ago. The patient was previously a nurse in [place], [place] and [place], where these procedures were performed. The patient has indwelling catheter with good drainage and output. The patient states that she has some back pain which is stable from her normal osteoarthritis. She denies any hematuria or dysuria. She denies history of recurrent urinary tract infections. PAST MEDICAL HISTORY: 1. Type 2 diabetes. 2. Aortic stenosis, status post aortic valve replacement. 3. Nonalcoholic cirrhosis. 4. Gastroesophageal reflux disease. 5. Kidney stones. 6. Uterine cancer. 7. Breast cancer. PAST SURGICAL HISTORY: 1. Cholecystectomy. 2. Hysterectomy. 3. Breast lumpectomy. 4. Right total hip arthroplasty. 5. Bilateral cataract surgery. 6. Lumbar laminectomy. 7. Umbilical hernia repair. 8. Total abdominal colectomy. 9. TVAR and aortic replacement. ALLERGIES: 1. Morphine. 2. Codeine. 3. Phenergan. 4. Tetanus and diphtheroid toxins. MEDICATIONS: 1. Lasix 40 mg p.o. b.i.d. 2. Aspirin 81 mg p.o. daily. 3. Potassium 20 mEq p.o. b.i.d. 4. Omeprazole 20 mg p.o. daily. 5. Lantus. 6. Vitamin D. 7. Meclizine 25 mg p.o. p.r.n. 8. Spironolactone 25 mg p.o. daily. 9. Metolazone 2.5 mg p.o. daily. 10. Lactulose 10 mg p.o. daily. 11. Magnesium 250 mg p.o. b.i.d. 12. Azithromycin 500 mg p.o. daily. 13. Fluconazole 100 mg p.o. daily. SOCIAL HISTORY: Denies alcohol, tobacco or illicit drug use. FAMILY HISTORY: Denies family history of malignancy. REVIEW OF SYSTEMS: A 12-point review of systems was performed, with all pertinent positives and negatives in HPI. PHYSICAL EXAMINATION: Vital signs: Heart rate 79, blood pressure 100/41, temperature 98.6 degrees, oxygen saturation 97% on room air.General: No acute distress. Resting comfortably in bed, alert and oriented. Slightly quiet during exam. Answers questions appropriately. HEENT: Normocephalic, atraumatic. Pupils equal, round and reactive to light. Mucous membranes moist. Neck: Trachea midline. No obvious deformities. Respiratory: Good respiratory effort, without audible wheezing or rales. Cardiovascular: Lower extremity edema 2+. Abdomen: Soft, nontender. No peritoneal signs. Midline incision covered with dressing. Right lower quadrant ileostomy in place with brownish stool and liquid in the bag. Genitourinary: No suprapubic tenderness. No CVA tenderness. Musculoskeletal: Moving all extremities. Neurologic: Gross motor and sensory intact. No obvious deficits. Skin: No obvious skin lesions or rashes. LABORATORY DATA: White blood cell count 6.9, hemoglobin 8.1, hematocrit 25.3, platelets 63,000. Sodium 136, potassium 5.4, chloride 108, bicarbonate 22, BUN 42, creatinine 1.9, glucose 132. DIAGNOSTIC DATA: Renal ultrasound 02/02/2019 reviewed, which was reviewed personally and showed that there was evidence of right mild to moderate hydronephrosis. This seems to be isolated to the kidney itself. No evidence of any left-sided hydronephrosis. Bladder is decompressed around a Rodriguez catheter. ASSESSMENT AND PLAN: Ms. Hernandez is an 78-year-old with type 2 diabetes, aortic stenosis, nonalcoholic cirrhosis, gastroesophageal reflux disease, history of kidney stones, uterine cancer, breast cancer, and recently diagnosed colon cancer. The patient underwent a total colectomy and diverting ileostomy by Dr. Myers on 01/31. The patient has had some acute kidney injury and renal ultrasound which showed evidence of right mild to moderate hydronephrosis. The patient's colectomy case seems to be quite difficult, and I think that her acute kidney injury is likely multifactorial between a fluid shift , recent surgery, and other comorbidities with evidence of new onset of right hydronephrosis. I recommend cystoscopy and bilateral retrograde pyelograms in consideration for right ureteral stent placement. I discussed this with the patient and her daughter today. If the patient's renal function significantly improves overnight, would hold off on procedure. The patient has had relatively stable renal function yesterday and today, but above her baseline. I told her if I had difficulty placing a stent, then we may have to consider percutaneous nephrotomy tube placement. This was discussed at length. They expressed understanding. We will plan to make her NPO at midnight in preparation for her surgery tomorrow. Tentative plan is for around 1300 hours. We will continue to monitor. Would keep indwelling catheter in at this time. We will follow up her a.m. labs. Please call with questions and concerns. cc: MD Smith Francisco MD MTDD
[2019-02-04] MEDS: HUMALOG SUBQ SCH ×8 (00:27→23:36)
[2019-02-04] MEDS: DILAUDID IV PRN ×5 (00:41→23:15)
[2019-02-04 04:59] LABS: BASO# 0.01 X1000 (0.0-0.2); BASO% 0.3 % (0.0-0.8); EOS# 0.08 X1000 (0.0-0.7); EOS% 2.2 % (0.0-10.0); HEMATOCRIT 24.1 % (37.0-47.0); HEMOGLOBIN 7.8 g/dL (12.0-16.0); IMM GRAN# 0.02 X1000 (0.0-0.04); IMM GRAN% 0.5 % (0.0-0.5); LYMPH# 0.55 X1000 (1.2-3.4); LYMPH% 14.9 % (20.5-51.1); MCH 29.7 PG (27-31); MCHC 32.4 g/dL (33-37); MCV 91.6 FL (81-99); MONO# 0.37 X1000 (0.11-0.59); MPV 11.1 FL (7.4-10.4); NEUT# 2.67 X1000 (1.4-6.5); NEUT% 72.1 % (42.2-75.2); PLT 62 X1000 (130-400); RBC 2.63 XMIL (4.2-5.4); RDW 14.1 % (11.5-14.5)
[2019-02-04 05:08] LABS: CREATININE 1.7 mg/dL (0.5-0.9); POTASSIUM 4.7 mmol/L (3.5-5.1)
[2019-02-04 05:09] LABS: ALBUMIN 2.5 g/dL (3.5-5.0); CALCIUM 7.5 mg/dL (8.8-10.2); PHOSPHORUS 3.1 mg/dL (2.7-4.5)
[2019-02-04] MEDS: 1/2 NS 1,000 ML IV SCH ×2 (07:57→21:38)
[2019-02-04] MEDS: PERIDEX MT SCH ×2 (08:03→20:49)
[2019-02-04] MEDS: ENTEREG PO SCH ×2 (08:05→20:50)
[2019-02-04] MEDS: LANTUS INSULIN SUBQ SCH (08:06)
[2019-02-04] MEDS: ALDACTONE PO SCH (08:06)
--- NOTE | 2019-02-04 08:32 | PROGRESS NOTE ---
DATE: 02/04/2019 SUBJECTIVE: The patient continues to have elevated renal function with creatinine of 1.7 today. She denies any flank pain. She has complained of some abdominal pain and discomfort today. Denies any nausea or vomiting. She states that she has dry mouth from being NPO. The patient has had good urinary output with 1475 mL recorded yesterday. She has had good output from her ileostomy. OBJECTIVE: Vital signs: Temperature 97.7 degrees, heart rate 72, blood pressure 94/37, and oxygen saturation 98% on room air. General: No acute distress. Resting comfortably in bed. Alert and oriented x3. Respiratory: Good respiratory effort without audible wheezing or rales. Abdomen: Soft, nontender, and nondistended. Midline incision covered with dressing. Ileostomy bag present in the right lower quadrant with good amount of output. : No suprapubic tenderness. Urethral catheter in place draining clear yellow urine. LABORATORY: White blood count 3.7, hemoglobin 7.8, hematocrit 24.1, and platelets 62,000. Sodium 135, potassium 4.7, chloride 104, bicarb 22, BUN 45, creatinine 1.7, glucose 142, and BUN 2.5. ASSESSMENT/PLAN: The patient is an 78-year-old who has type 2 diabetes, aortic stenosis status post aortic valve replacement, non alcoholic cirrhosis, gastroesophageal reflux disease, nephrolithiasis, uterine cancer, breast cancer, and recently treated colon cancer who presents in consultation regarding acute kidney injury with evidence of right hydronephrosis. The patient's renal function is slightly improved today at 1.7, from 1.9 yesterday. The patient continues to complain of abdominal pain and discomfort. The patient had a renal ultrasound which does show a right hydronephrosis. My concern is that she has elevated creatinine related to acute kidney injury related to the hydronephrosis. Talking with her and her daughter yesterday, I recommend consideration for cystoscopy, bilateral retrograde pyelograms, and placement of right ureteral stent. Risks, benefits, and alternatives of the surgical procedure were discussed with the patient, and the patient elected to proceed. We will plan to perform this later today. Please call with questions or concerns. cc: MD Smith Francisco MD MTDD
--- NOTE | 2019-02-04 10:03 | PROGRESS NOTE ---
DATE: 02/04/2019 SUBJECTIVE: Patient is resting comfortably in bed, she is still complaining of some abdominal pain. Urine output increased compared with yesterday in the past 24 hours from 565 to 1475. She is not complaining of shortness of breath. Renal ultrasound showed a possible mild right hydronephrosis. Urology Department has been consulted, and probably they will do a cystoscopy exam with bilateral retrograde pyelograms, and also possible right ureteral stent placement. She has been placed n.p.o. She has been having episodes of hypotension, but this is likely related to the pain treatment. I talked to the patient and we discussed the possibility of decreasing the dose of Dilaudid by half. OBJECTIVE: Vital Signs: Temperature 97.7 degrees, pulse 72, respiratory rate 15, blood pressure 94/37, oxygen saturation 98 on 2 L of nasal cannula. HEENT: Head normocephalic, no trauma. PERRLA. Neck: Supple. No JVD. No masses. Central trachea. Chest: Decreased breath sounds at the bases. Abdomen: Soft. Generalized tenderness to palpation, mostly at the level of the perioperative area and right upper quadrant. No signs of peritoneal irritation. Dressing covering the mid part of the abdomen. Drain has been removed. Ileostomy on the right side looks fine. Extremities: No edema, no clubbing, no cyanosis. Neurological examination: The patient is alert and oriented x3. No focal deficits, but generalized weakness. LABORATORY: WBC 3.7, hemoglobin 7.8, hematocrit 24.1, platelets 62. Sodium 135, potassium 4.7, chloride 104, bicarbonate 22. BUN 45, creatinine 1.7, glucose 142, calcium 7.5, phosphorus 3.1, albumin 2.5. ASSESSMENT AND PLAN: 1. Synchronous cecal and rectal cancer, status post total abdominal colectomy with ileostomy and diverting ileostomy, postoperative day #3. She is still complaining of abdominal pain, but is getting better. She is still getting pain medication, which is causing some low blood pressure, even to the 60s. I discussed with patient the possibility of decreasing the dose by half to see how she does. She does have some bowel movement. 2. Acute kidney injury. Her urine output increased compared with yesterday, from 565 mL to 1475. We will continue with the same management for now. Nephrology Department on board. 3. History of aortic valve replacement. Cardiology on board. Continue with same management. 4. History of breast cancer and uterine cancer. Aware. 5. Known alcoholic liver cirrhosis. Will continue to monitor for now. Continue with spironolactone. We are holding her Lasix. 6. Type 2 diabetes. She seems to be more stable with the current dose of Lantus. I will continue with the same management. 7. Borderline low blood pressure. Continue with the same management. We will avoid too much pain medication on this patient, and probably we will decrease the dose by half after the procedure. 8. Hypomagnesemia, resolved. 9. Normocytic anemia, stable. 10. Possible mild right hydronephrosis, Urology Department on board. Probably they will do a cystoscopic exam and bilateral retrograde pyelogram on this patient today with possible stent placement on the right side. CRITICAL CARE TIME: 35 minutes. cc: Smith Stacy MD
[2019-02-04] MEDS ORDERED: DIPRIVAN 1% ONE (12:35)
[2019-02-04] MEDS ORDERED: XYLOCAINE-MPF 2% ONE (12:36)
[2019-02-04] MEDS ORDERED: KEFZOL 2 GM/D5W 2 GM/50 ML IVPB ONE (13:09)
--- NOTE | 2019-02-04 15:25 | Diag Imaging Result Doc PS360 ---
EXAM: CT ABDOMEN/PELVIS W/O CONTRAST 02/04/2019 HISTORY: Evaluation for ureteral injury and right hydro TECHNIQUE: This exam was performed using automated exposure control, adjustment of mA or kV according to patient size, and/or use of iterative reconstruction technique. COMMENT: There are bilateral pleural effusions. There are atelectatic changes particularly in the right lower lobe. There is considerable ascites. This was not the case at the time of the previous examination of 07/20/2013. The liver is somewhat shrunken and nodular in appearance consistent with cirrhosis. The spleen measures in excess of 11.7 cm. There is no evidence of nephrolithiasis. There is right-sided hydronephrosis. The dilated right ureter is seen to a point at which there are several surgical clips adjacent to the right common iliac artery and vein. By history there is an obstruction of the right ureter as seen on retrograde pyelography performed today, and there may have been ligation or transection of the ureter. There is apparent contrast material in the cul-de-sac which may have been introduced during the attempted right retrograde pyelogram. There is an ileostomy on the right. There is a right hip prosthesis. There is a Rodriguez catheter in the bladder. There is degenerative disc and facet disease in the lumbar spine. IMPRESSION: Right hydronephrosis. The possibility of ligation or transection of the ureter at the level of the common iliac vessels on the right cannot be excluded. Ascites. It is possible that some of the fluid is due to urinary ascites. Bibasilar atelectasis and pleural effusions. Electronically signed by Freddy Murrell 02/04/2019 3:23 PM
--- NOTE | 2019-02-04 19:24 | GENERAL SURGERY PROGRESS NOTE ---
DATE: 02/04/2019 SUBJECTIVE: Rukhsana seems to be doing better. OBJECTIVE: She is afebrile. Heart rate 70, blood pressure 98/40. Her urine output has improved. Her intake was 4044 output 3425, so urine output went up to 1950 mL. She continues to put stuff into her ileostomy as well. She has taken liquids satisfactorily. LABORATORY DATA: Laboratory shows a fall in her white count to 3700, a fall in her hemoglobin to 7.8, hematocrit 24, fall in her platelet count to 62,000. All of this goes along with hypersplenism and cirrhosis. Her BUN is 45, her creatinine has fallen to 1.7. Potassium has fallen to 4.7. Glucose is in the mid 100 range. ASSESSMENT AND PLAN: 1. Four days after her total abdominal colectomy. Her ileostomy is functioning. She has been taking liquids okay. We will advance her diet after her procedure this afternoon. 2. She now has evidence of fall in her counts, usually due to cirrhosis and portal venous hypertension. We will have to watch her platelet count, especially in view of the risk of bleeding. 3. Her kidney function is improved, with a fall in her creatinine. Mild hydronephrosis is going to be evaluated today by Dr. Toledo. Dr. Rey is to cover the week. We might be able to move her out to a regular room over the weekend. cc: MD Smith Patel MD
--- NOTE | 2019-02-04 21:08 | NEPHROLOGY PROGRESS NOTE ---
DATE: 02/04/2019 SUBJECTIVE: The patient is resting in bed. She does not appear in distress. OBJECTIVE: Vital Signs: Temperature 97.7, pulse 74, respiratory rate 12, blood pressure 86/62. Intake 560 mL. Output 160 mL. General: Elderly female, resting in bed. Does not appear in distress. Remains on CPAP. HEENT: Normocephalic, atraumatic. EPIFANIO. Neck: Supple. No JVD. Cardiovascular: Regular rate and rhythm. Systolic murmur. Pulmonary: Clear bilaterally. Abdomen: Soft, positive bowel sounds. YOLI drain noted. Ostomy noted. Integumentary: Skin is warm and dry. Neurologic: Grossly nonfocal. She is drowsy today. LAB DATA: Sodium 141, potassium 4.0. CO2 is 19, creatinine 2.2 (1.9, 1.7). ASSESSMENT AND PLAN: 1. Acute kidney injury, hypovolemia. The patient's renal function really has not improved. She does have a history of ejection fraction, pulmonary hypertension, mitral stenosis,and pulmonary edema. Some gentle hydration with close monitoring would be acceptable from a renal perspective to see if we can improve the renal function. 2. Atrial fibrillation with rapid ventricular response. Currently controlled rate. 3. Bilateral effusions, likely aspiration pneumonia. Followed by primary and Pulmonology. Dictated by LYNDSEY Mabry for Donny Landin MD cc: MD Smith Woo MD
--- NOTE | 2019-02-04 21:23 | NEPHROLOGY PROGRESS NOTE ---
DATE: 02/04/2019 SUBJECTIVE: Patient currently resting in bed. She is awake and alert. She does not appear in acute distress. OBJECTIVE: HEENT: Normocephalic and atraumatic. PERRL. Neck: Supple without JVD. Cardiovascular: Regular rate and rhythm. Pulmonary: Clear bilaterally. Abdomen: Soft, positive bowel sounds. : Not inspected. Extremities: No clubbing, cyanosis, or edema. Integumentary: Skin is warm and dry. LAB DATA: Hemoglobin 7.8. Sodium 135, potassium 4.7, CO2 22, creatinine 1.7. ASSESSMENT AND PLAN: 1. Acute kidney injury, multifactorial. Renal function has actually improved overnight. No changes to current plan. 2. Hydronephrosis, followed by Primary and Urology. 3. Electrolytes, acid-base balance anemia. These are acceptable. Continue to monitor closely. 4. History of abdominal colectomy, ileoscopy, diverting ileostomy, followed by Dr. Myers. 5. Hydronephrosis. She is to go for cystostomy, pyelogram, and placement of right ureteral stent. Dictated by LYNDSEY Mabry for Donny Landin MD cc: MD Smith Woo MD [facility]
--- NOTE | 2019-02-04 21:33 | OPERATIVE NOTE ---
PROCEDURE DATE: 02/04/2019 PREOPERATIVE DIAGNOSIS: Right hydronephrosis. POSTOPERATIVE DIAGNOSES: 1. Right hydronephrosis. 2. Right obstructed ureter; concern for right ureteral injury. PROCEDURE: 1. Cystoscopy. 2. Bilateral retrograde pyelograms. SURGEON: Dr. Toledo. CHILD LIFE SPECIALIST: None. COMPLICATIONS: Obstructed right distal ureter. SPECIMENS REMOVED: None. DRAINS: 16-Lithuanian Rodriguez catheter. INDICATION FOR PROCEDURE: Ms. Hernandez is an 78-year-old with multiple comorbidities, including type 2 diabetes, aortic stenosis status post aortic valve replacement, nonalcoholic cirrhosis, gastroesophageal reflux disease, nephrolithiasis, uterine cancer, breast cancer, and recently treated colon cancer, status post a total abdominal colectomy on 01/31/2019. The patient presented in consultation regarding right hydronephrosis and acute kidney injury. The patient's renal function has been elevated from baseline around 0.9 up to 2. The patient's creatinine today is 1.7. Due to persistent ANGELINE and hydronephrosis, recommended cystoscopy and bilateral retrograde pyelograms. This was discussed with the patient and her daughter yesterday, and they elected to proceed. DESCRIPTION OF PROCEDURE: After informed consent was obtained, the patient was brought to the operating room from the ICU, underwent general anesthesia, and was placed onto the operating table in supine position and later moved into a dorsal lithotomy position. The patient received preoperative antibiotics, was then prepped and draped in the usual sterile fashion. A preop time- out was performed. All parties were in agreement, including the anesthesia, surgical, and nursing staff, at which point I inserted a 21-Lithuanian cystourethroscope into the urethra, which showed a normal urethra and no evidence of any papillary lesions or strictures. Once inside the bladder, the entirety of the bladder was inspected with 30 degree lens with no obvious masses, diverticulum, or cellules. Both ureteral orifices were visualized. There was efflux of clear yellow urine from the left side, but no efflux or peristalsis was seen from the right side. Multiple erythematous areas were seen on the posterior wall of the bladder, which appeared to be related to catheterization. No obvious papillary lesions were seen. After the entirety of the bladder was inspected, an open-ended catheter was inserted through the scope, the catheter was cleared of all bubbles, and then the left ureteral orifice was cannulized and injected, which showed a delicate collecting system with no evidence of any hydronephrosis or filling defects. The collecting system filled appropriately with delicate collecting system and then on postdrainage films, good drainage was seen from the collecting system. The patient's bladder was then cycled and all irrigant was removed. Attention was then placed to the right side at which point the right ureteral orifice was visualized, and I was able to cannulate just inside the ureteral orifice. Injected Omnipaque, which outlined a normal 1 to 2 cm distal area; however, this terminated very quickly and extravasated posterior to the bladder. I then attempted to place a wire through the open-ended catheter, and this also went into the retroperitoneal space. I again tried to advance the open-ended catheter to allow for easier passage of the wire; however, this was unable to pass any higher. Due to the trajectory of the ureter, concern arises that the patient has a right ureteral injury and transection of the ureter at which point the procedure was terminated, and the Rodriguez catheter was inserted and inflated with 10 mL of sterile water and placed to gravity drainage. The patient was awoken and was taken back to the ICU in stable condition. We will plan to obtain a CT scan and possible referral to Radiology for possible right nephrostomy tube placement. cc: MD Smith Francisco MD MTDD
[2019-02-05] MEDS: HUMALOG SUBQ SCH ×5 (04:44→20:30)
[2019-02-05 04:57] LABS: HEMATOCRIT 25.9 % (37.0-47.0); HEMOGLOBIN 8.6 g/dL (12.0-16.0); IMM GRAN# 0.02 X1000 (0.0-0.04); IMM GRAN% 0.5 % (0.0-0.5); LYMPH% 7.7 % (20.5-51.1); MCHC 33.2 g/dL (33-37); MCV 90.2 FL (81-99); MONO# 0.33 X1000 (0.11-0.59); MONO% 8.5 % (1.7-9.3); MPV 11.2 FL (7.4-10.4); NEUT# 3.23 X1000 (1.4-6.5); NEUT% 83.3 % (42.2-75.2); PLT 72 X1000 (130-400); RBC 2.87 XMIL (4.2-5.4); RDW 13.9 % (11.5-14.5); WBC 3.88 X1000 (4.8-10.8)
[2019-02-05 05:20] LABS: ALBUMIN 2.7 g/dL (3.5-5.0); CALCIUM 7.6 mg/dL (8.8-10.2); CREATININE 1.7 mg/dL (0.5-0.9); PHOSPHORUS 3.6 mg/dL (2.7-4.5); POTASSIUM 5.2 mmol/L (3.5-5.1)
[2019-02-05] MEDS: PERIDEX MT SCH ×2 (08:33→20:28)
[2019-02-05] MEDS: LANTUS INSULIN SUBQ SCH (08:33)
[2019-02-05] MEDS: ENTEREG PO SCH (08:33)
[2019-02-05] MEDS: ALDACTONE PO SCH (08:33)
[2019-02-05] MEDS: 1/2 NS 1,000 ML IV SCH (09:08)
[2019-02-05] MEDS: DILAUDID IV PRN ×3 (10:20→18:29)
--- NOTE | 2019-02-05 18:50 | PROGRESS NOTE ---
DATE: 02/05/2019 SUBJECTIVE: The patient is resting comfortably in bed. She is complaining a little bit of abdominal pain. Her urine output is much better today, around 2.2 L in 24 hours. Yesterday they did a cystoscopic exam with bilateral retrograde pyelograms due to right hydronephrosis, right obstructed ureter, concern for right ureteral injury. The plan is to go ahead and try to get a nephrostomy tube on the right side this coming Thursday. OBJECTIVE: Vital signs: Temperature 98.1 degrees, pulse 97, respiratory rate 21, blood pressure 118/58, oxygen saturation 98 on 2 L of nasal cannula. HEENT: Head normocephalic, no trauma. PERRLA. Neck is supple. No JVD. No masses. Central trachea. Chest: Decreased breath sounds at the bases. Abdomen is soft. Generalized tenderness to palpation, mostly at the level of the perioperative area and right upper quadrant. No signs of peritoneal irritation. The wound is not covered today. It is a large midline wound with ann and it is clean, dry and intact. Ileostomy on the right side looks fine. Extremities: No edema, no clubbing, no cyanosis. Neurologic: The patient is alert and oriented x3. No focal neurological deficits, but generalized weakness. LABORATORY DATA: WBC 3.8, hemoglobin 8.6, hematocrit 25.9, platelets 72,000. Sodium 136, potassium 5.2, chloride 105, bicarbonate 20, BUN 46, creatinine 1.7, glucose 170, calcium 7.6, albumin 2.7. ASSESSMENT AND PLAN: 1. Synchronous cecal and rectal cancer, status post total abdominal colectomy with ileostomy and diverting ileostomy, postoperative day #4. Her abdominal pain is better, but she is still complaining of some discomfort. 2. Acute kidney injury, urine output is much better compared with yesterday. We will continue to monitor. Nephrology Department on board. 3. History of aortic valve replacement. Cardiology on board. Continue with same management. 4. History of breast cancer and uterine cancer. Aware. 5. History of liver cirrhosis not related to alcohol. Continue to monitor for now. Continue with spironolactone. We are holding her Lasix. 6. Type 2 diabetes. She seems to be more stable. We will continue with her dose of Lantus. I will continue with same management. 7. Borderline low blood pressure, stable. Continue to monitor. We need to avoid too much pain medication on this patient. 8. Hypomagnesemia, resolved. 9. Normocytic anemia, stable. 10. Right hydronephrosis. Urology Department evaluated this patient. They did a cystoscopic exam with bilateral retrograde pyelograms and they found some obstruction at the level of the right ureter, concerning for right ureteral injury. The plan is to do a nephrostomy tube this coming Thursday. cc: Smith Stacy MD
--- NOTE | 2019-02-05 20:19 | PROGRESS NOTE ---
DATE: 02/05/2019 SUBJECTIVE: No acute events overnight. The patient was taken the operating room yesterday for cystoscopy, bilateral retrograde pyelograms. The patient was found to have likely right ureteral injury on retrograde, underwent CT scan which showed fluid collection in the pelvis which was difficult to know if ascites versus urinary ascites. The patient had some right hydronephrosis present as well. Talking with her, the discussion was whether to undergo nephrostomy tube placement, which I recommended, however patient wanted to wait. She did not want to undergo another anesthesia so soon after her anesthesia during my procedure. Patient overall states she feels better today. States her pain is somewhat improved. She has made good urinary output through urethral catheter which is improved since yesterday. Denies any nausea, vomiting and has had good output from her ileostomy. OBJECTIVE: Vital signs: Temperature 98.1 degrees, heart rate 97, blood pressure 118/58, oxygen saturation 98% on 2 L nasal cannula. General: No acute distress. Resting comfortably in bed. Alert and oriented x3. Respiratory: Good respiratory effort without audible wheezing or rales, [address]. Abdomen: Soft, nontender, nondistended. Staple line well healed without erythema. Ileostomy present in the right lower quadrant with good drainage. : No suprapubic tenderness. No CVA tenderness. Urethral catheter in place draining clear yellow urine . Musculoskeletal: Moving lower extremities which she states yesterday she was unable to do yesterday. LABS: White blood cell count 3.9, hemoglobin 8.6, hematocrit 25.9, platelets 72,000. Sodium 136, potassium 5.2, chloride 105, bicarb 20, BUN 46, creatinine 1.7, glucose 170. ASSESSMENT AND PLAN: Ms. Hernandez is an 78-year-old with type 2 diabetes, aortic stenosis status post aortic valve replacement, nonalcoholic cirrhosis, gastroesophageal reflux disease, nephrolithiasis, uterine cancer, breast cancer and recently treated colon cancer who presents consultation regarding acute kidney injury and right hydronephrosis. Patient was taken the operating room yesterday for cystoscopy and bilateral retrograde pyelograms. On right retrograde pyelogram there was evidence of obstruction of the right ureter several centimeters away from the bladder. Attempted to place a wire as well as contrast and this appeared to be just transverse into the retroperitoneum posterior to the bladder. It appears the patient has a right ureteral injury. Patient underwent a CT scan yesterday which showed ascites as well as possible urinary ascites and right hydronephrosis. Contrast was seen posterior to the bladder likely that was extruded during the retrograde pyelogram. Discussed with her yesterday regarding proceeding with nephrostomy tube placement. Discussed with Radiology, patient, and patient's daughter. The patient desired to hold off on the 2nd anesthesia yesterday and awaited future date for her nephrostomy tube placement. Patient seemingly is clinically stable. Her creatinine is at 1.7 which is stable from yesterday. Her infection count remains around 3.9. She has been afebrile and vital signs have all been within normal limits. Talked with her and her daughter yesterday extensively regarding nephrostomy tube placement and would plan to do this on Thursday unless clinically changes. Told them that when urine leaks out into the abdomen it sometimes can lead to infection so will have to continue to monitor closely. Will continue to monitor. Please call with questions or concerns. cc: MD Smith Francicso MD [facility]
[2019-02-06] MEDS: HUMALOG SUBQ SCH ×7 (01:31→23:55)
[2019-02-06] MEDS: 1/2 NS 1,000 ML IV SCH ×2 (01:31→09:43)
[2019-02-06 05:46] LABS: EOS# 0.13 X1000 (0.0-0.7); EOS% 3.6 % (0.0-10.0); HEMATOCRIT 26.5 % (37.0-47.0); HEMOGLOBIN 8.8 g/dL (12.0-16.0); IMM GRAN# 0.03 X1000 (0.0-0.04); IMM GRAN% 0.8 % (0.0-0.5); LYMPH# 0.47 X1000 (1.2-3.4); LYMPH% 13.1 % (20.5-51.1); MCH 30.1 PG (27-31); MCHC 33.2 g/dL (33-37); MCV 90.8 FL (81-99); MONO# 0.45 X1000 (0.11-0.59); MONO% 12.5 % (1.7-9.3); MPV 10.8 FL (7.4-10.4); NEUT# 2.51 X1000 (1.4-6.5); PLT 69 X1000 (130-400); RBC 2.92 XMIL (4.2-5.4); RDW 14.2 % (11.5-14.5); WBC 3.59 X1000 (4.8-10.8)
[2019-02-06 06:00] LABS: ALBUMIN 2.5 g/dL (3.5-5.0); CALCIUM 8.1 mg/dL (8.8-10.2); CREATININE 1.4 mg/dL (0.5-0.9); PHOSPHORUS 2.4 mg/dL (2.7-4.5); POTASSIUM 4.5 mmol/L (3.5-5.1)
--- NOTE | 2019-02-06 06:12 | GENERAL SURGERY PROGRESS NOTE ---
DATE: 02/05/2019 SUBJECTIVE: She is doing overall okay. Her ostomy is working. Abdomen is soft. Urine is clear. No fevers. No tachycardia. OBJECTIVE: Blood pressure 118/58, oxygen saturation 98% on 2 L. General: She is alert. Abdomen: Dressing is intact. LABS: White count 3, hematocrit 24. Creatinine is 1.7, this is stable. Glucose 160s to 170s. Albumin is 2.7. ASSESSMENT AND PLAN: An 78-year-old female status post total abdominal colectomy with end ileostomy. Apparent right ureteral injury with plans for percutaneous nephrostomy early next week. Creatinine is stable. She does not have peritonitis on exam. She is on a liquid diet, we will continue this for now. We are going to stop her Entereg. She has SCDs in place. cc: MD Smith Robison MD
--- NOTE | 2019-02-06 07:37 | CARDIOLOGY PROGRESS NOTE ---
DATE: 02/05/2019 SUBJECTIVE: Ms. Hernandez reports she is feeling better. Her abdomen seems to be improving in discomfort. She has not had any palpitations overnight. PHYSICAL EXAMINATION: The patient is afebrile. Heart rate 83, blood pressure 98/57. General: She is in no acute distress. Cardiovascular: She sounds to be in a regular rate and rhythm. During my examination, she was in sinus with occasional PVCs. She has no lower extremity edema. Chest: Examination sounds clear bilaterally. She has no increased work of breathing. Abdomen: Soft and nontender. PERTINENT DATA: Lab-bhatia, her white count was 3.8, hematocrit 25 which is roughly stable over the last 3 days, her platelet count was 72,000. Her sodium is 136, potassium is 5.2, BUN is 46, creatinine is 1.7, magnesium level 2.3. ASSESSMENT: Ms. Hernandez is an 78-year-old female who underwent a colectomy for rectal/cecal cancer. She has had a transcatheter aortic valve replacement in the past with subsequent premature ventricular contractions occurring in the postoperative period. PLAN: I do not have any acute cardiovascular recommendations. She seems to be relatively stable from a rhythm standpoint. cc: MD Smith Velazquez MD
--- NOTE | 2019-02-06 07:54 | NEPHROLOGY PROGRESS NOTE ---
DATE: 02/05/2019 SUBJECTIVE: Patient currently resting in bed. She went yesterday for cystoscopy and bilateral retrograde pyelogram secondary to right hydronephrosis and right obstructing ureter. OBJECTIVE: Vital Signs: Temperature 98.1 degrees, pulse 97, respiratory rate 21, blood pressure 118/58. Intake 1.9 L. Output 2.4 L. General: This is an elderly female, resting in bed. Awake and alert. No acute distress. HEENT: Normocephalic, atraumatic. EPIFANIO. Neck: Supple. No JVD. Cardiovascular: Regular rate and rhythm. Pulmonary: Clear bilaterally. Abdomen: Soft. Positive bowel sounds. : Rodriguez catheter. Extremities: No clubbing, cyanosis. Trace edema. Integumentary: Skin is warm and dry. Lab Data: Potassium 5.2, creatinine 1.7. ASSESSMENT AND PLAN: 1. Acute kidney injury, multifactorial. Renal function stable overnight. 2. Hydronephrosis. Patient went for procedure yesterday. We will continue to follow along closely. Urine output has been excellent over the last 24 hours with greater than 2 L. 3. Electrolytes, acid-base balance. These are acceptable. Check labs in the morning. Dictated by LYNDSEY Mabry for Donny Landin MD cc: MD Smith Woo MD
[2019-02-06] MEDS: LANTUS INSULIN SUBQ SCH (08:02)
[2019-02-06] MEDS: PERIDEX MT SCH ×2 (08:02→20:17)
[2019-02-06] MEDS: ALDACTONE PO SCH (08:02)
[2019-02-06] MEDS: DILAUDID IV PRN ×5 (08:09→23:55)
[2019-02-06 09:40] LABS: INR 1.48
--- NOTE | 2019-02-06 10:20 | PROGRESS NOTE ---
DATE: 02/06/2019 SUBJECTIVE: No acute events overnight. The patient states that her abdominal pain seems to be relatively stable. She denies any nausea, vomiting. She has been tolerating p.o. intake. She has had good urinary output with clear yellow urine, approximately 1.1 L recorded. Fecal device also put out approximately 960cc. She denies any flank pain. OBJECTIVE: Vitals: Temperature 98.5 degrees, heart rate 73, blood pressure 109/44, oxygen saturation 99% on room air. General: No acute distress. Resting comfortably in bed, alert, oriented x3. Respiratory: No nasal cannula. Breathing without issue. Abdomen: Soft, nontender, nondistended. Midline incision with ann, no erythema or drainage. Ileostomy present in the right lower quadrant with a large amount of output. : No suprapubic tenderness. No CVA tenderness. Urethral catheter in place draining clear yellow urine. LABORATORIES: White blood cell count 3.6, hemoglobin 8.8, hematocrit 26.5, platelets 69,000. Sodium 139, potassium 4.5, chloride 107, bicarb 22, creatinine 1.4, sodium 124. ASSESSMENT/PLAN: Ms. Hernandez is an 78-year-old with type 2 diabetes, aortic stenosis status post aortic valve replacement, nonalcoholic cirrhosis, gastroesophageal reflux disease, nephrolithiasis, uterine cancer, breast cancer, and recent total colectomy for colon cancer who presents as a consult for acute kidney injury and right hydronephrosis. Was taken to the operating room for cystoscopy and bilateral retrograde pyelograms on Thursday. Right retrograde pyelogram showed extravasation of contrast into the retroperitoneum with no obvious connection between distal ureter and kidney. The patient underwent a CT scan which showed a fluid collection posterior to the bladder, likely related to ureteral injury. Overall, patient seems to be improving. Creatinine slightly down today to 1.4 from 1.7. I still recommend consideration for nephrostomy tube as patient had no connection between her right kidney and bladder on retrograde pyelogram. My concern would be that she will continue to leak urine into her pelvis. The patient does describe some back pain. However, she is uncertain if this is just her baseline back pain versus lying in the bed for extended period of time. The patient had obvious hydronephrosis on CT scan. We will plan to perform right nephrostomy tube tomorrow for drainage of her kidney and then will monitor output and consider for surgical repair with reimplantation of her ureter in the distant future. cc: MD Smith Francisco MD [facility]TDD
--- NOTE | 2019-02-06 10:28 | PROGRESS NOTE ---
DATE: 02/06/2019 SUBJECTIVE: The patient is resting comfortably in bed. She is still complaining of some abdominal pain but it is better. Even though her urine output is decreased compared with yesterday, her BUN and creatinine are better. She has a positive balance of 9 L. I will let Nephrology Department manage her fluids. OBJECTIVE: Vital Signs: Temperature 98.5 degrees, pulse 73, respiratory rate 14, blood pressure 109/44, oxygen saturation 99 on 2 L of nasal cannula. HEENT: Head normocephalic, no trauma. PERRLA. Neck: Supple. No JVD. No masses. Central trachea. Chest: Decreased breath sounds at the bases. Abdomen: Soft. Generalized tenderness to palpation, mostly at the level of the perioperative area and right upper quadrant. No signs of peritoneal irritation. The wound is not covered today, and it looks really clean, dry, and intact. She has some ann. Ileostomy on the right side looks fine. Extremities: No edema. No clubbing. No cyanosis. Neurological: The patient is alert and oriented x3. No focal deficits. LABORATORY: WBC 3.5, hemoglobin 8.8, hematocrit 26.5, platelets 69,000. Sodium 139, potassium 4.5, chloride 107, bicarbonate 24, BUN 36, creatinine 1.4, glucose 124, calcium 8.1, phosphorus 2.4. ASSESSMENT AND PLAN: 1. Synchronous cecal and rectal cancer, status post total abdominal colectomy with ileostomy and diverting ileostomy, postoperative day #5. Her abdominal pain is better, but she is still complaining of some discomfort. It is soft. I do not see any signs of infection. 2. Acute kidney injury. Urine output is acceptable. Compared with yesterday, her output dropped a little bit, but the BUN and creatinine are better. I will let Nephrology Department manage to take care of the fluids. She has a positive balance of 9 L. 3. History of aortic valve replacement. Cardiology on board. Continue with same management. 4. History of breast cancer and uterine cancer. Aware. 5. History of liver cirrhosis, not related to alcohol. Continue to monitor for now. Continue with spironolactone. We are holding her Lasix. 6. Type 2 diabetes. She seems to be more stable. Will continue with her dose of Lantus. I will continue with same management. Blood sugar seems to be controlled. 7. Borderline low blood pressure, stable, mostly when she gets her pain medication. 8. Hypomagnesemia, resolved. 9. Normocytic anemia, stable. 10. Right hydronephrosis. Urology Department already evaluated this patient, and they did a cystoscopic exam and bilateral retrograde pyelograms, and they found some obstruction at the level of the right ureter concerning for right ureteral injury. The plan is to do a nephrostomy tube this coming Thursday. CRITICAL CARE TIME: 30 minutes. cc: Smith Stacy MD
[2019-02-06] MEDS ORDERED: NS 250 ML ONE (11:51)
--- NOTE | 2019-02-06 16:59 | NEPHROLOGY PROGRESS NOTE ---
DATE: 02/06/2019 SUBJECTIVE: Patient sitting up in bed. No acute distress. OBJECTIVE: Vital Signs: Temperature 99.1 degrees, pulse 73, respiratory rate 13, blood pressure 118/47, intake 2.8 L, output 1.9 L. EXAM: General: This is an elderly female resting in bed no acute distress. HEENT: Normocephalic, atraumatic. EPIFANIO. Neck: Supple. No JVD. Cardiovascular: Regular rate and rhythm. Pulmonary: Clear bilaterally. Abdomen: Soft, positive bowel sounds, slight tenderness to perioperative very right upper quadrant. Incisions clean, dry and intact, ann intact. Ileostomy noted. : Not inspected. Extremities: No clubbing, cyanosis, no edema. Integumentary: Skin is warm and dry. LAB DATA: CO2 22, creatinine 1.4, potassium 4.5. ASSESSMENT AND PLAN: 1. Acute kidney injury. Renal function is improving, continue to monitor. Urine output has been adequate. 2. Synchronous cecal and rectal cancer status post total abdominal colectomy with ileostomy and diverting ileostomy followed by primary and Surgery. 3. Right hydronephrosis followed by Urology. She is to get a nephrostomy tube apparently on Thursday. Dictated by LYNDSEY Mabry for Donny Landin MD cc: MD Smith Woo MD
--- NOTE | 2019-02-06 21:46 | GENERAL SURGERY PROGRESS NOTE ---
DATE: 02/06/2019 SUBJECTIVE: Feels okay, pain is reasonable. Ostomy is working, is tolerating a diet. No fevers, no tachycardia overnight. LABS: White count is 3, hematocrit 26, creatinine is down to 1.4, glucose 120s-144. ASSESSMENT/PLAN: 78-year-old female status post total abdominal colectomy. Plans for perc nephrostomy tube tomorrow. Urology is following, cardiology following, nephrology is following. From a GI standpoint she seems to be doing okay. cc: MD Smith Robison MD
[2019-02-07] MEDS: 1/2 NS 1,000 ML IV SCH ×4 (03:08→23:42)
[2019-02-07 05:52] LABS: ALBUMIN 2.5 g/dL (3.5-5.0); CALCIUM 7.6 mg/dL (8.8-10.2); CREATININE 1.1 mg/dL (0.5-0.9); PHOSPHORUS 2.3 mg/dL (2.7-4.5); POTASSIUM 4.2 mmol/L (3.5-5.1)
[2019-02-07 06:11] LABS: BASO# 0.01 X1000 (0.0-0.2); BASO% 0.3 % (0.0-0.8); EOS# 0.11 X1000 (0.0-0.7); EOS% 3.3 % (0.0-10.0); HEMATOCRIT 27.7 % (37.0-47.0); HEMOGLOBIN 9.1 g/dL (12.0-16.0); IMM GRAN# 0.03 X1000 (0.0-0.04); IMM GRAN% 0.9 % (0.0-0.5); LYMPH# 0.54 X1000 (1.2-3.4); LYMPH% 16.1 % (20.5-51.1); MCH 29.8 PG (27-31); MCHC 32.9 g/dL (33-37); MCV 90.8 FL (81-99); MONO# 0.28 X1000 (0.11-0.59); MONO% 8.3 % (1.7-9.3); MPV 10.9 FL (7.4-10.4); NEUT# 2.39 X1000 (1.4-6.5); NEUT% 71.1 % (42.2-75.2); PLT 68 X1000 (130-400); RBC 3.05 XMIL (4.2-5.4); RDW 14.6 % (11.5-14.5); WBC 3.36 X1000 (4.8-10.8)
[2019-02-07] MEDS: HUMALOG SUBQ SCH ×6 (06:54→23:43)
[2019-02-07] MEDS ORDERED: NORCO-7.5 PO PRN (07:57)
[2019-02-07] MEDS ORDERED: DIPRIVAN 1% ONE (08:12)
[2019-02-07] MEDS: PERIDEX MT SCH ×2 (08:17→20:05)
[2019-02-07] MEDS ORDERED: XYLOCAINE-MPF 1%/EPI 1:200,000 ONE ×4 (08:19→08:22)
[2019-02-07] MEDS: LANTUS INSULIN SUBQ SCH (08:19)
[2019-02-07] MEDS: ALDACTONE PO SCH (08:19)
[2019-02-07] MEDS ORDERED: NS 500 ML ONE ×2 (08:20)
--- NOTE | 2019-02-07 08:28 | PROGRESS NOTE ---
DATE: 02/07/2019 SUBJECTIVE: No acute events overnight. The patient continues with good output from her Rodriguez catheter of clear yellow urine. The patient put out approximately 975 mL yesterday which has slightly decreased over the past several days. The patient continues to have good output from her ileostomy. She states her pain is well controlled at this time and denies any significant nausea or vomiting. The patient is made n.p.o. for possible nephrostomy tube placement today. OBJECTIVE: Vital signs: Temperature 97.6, heart rate 85, blood pressure 135/61, oxygen saturation 99% on room air. General: No acute distress. Resting comfortably in bed, alert and oriented x3. Respiratory: Good respiratory effort without audible wheezing or rales. Abdomen: Soft, nontender, nondistended. No palpable masses. : Urethral catheter in place draining clear yellow urine. No suprapubic tenderness. No CVA tenderness. LABORATORIES: White blood cell count 3.4, hemoglobin 9.1, hematocrit 27.7, platelets 68,000. Sodium 139, potassium 4.2, chloride 109, bicarb 23, BUN 29, creatinine 1.1, glucose 106. ASSESSMENT AND PLAN: Ms. Hernandez is an 78-year-old with type 2 diabetes, aortic stenosis, status post aortic valve replacement, nonalcoholic cirrhosis, gastroesophageal reflux disease, nephrolithiasis, uterine cancer and breast cancer and recently a total colectomy for colon cancer who presents in consultation regarding acute kidney injury and right hydronephrosis, was taken to the operating room on Thursday for cystoscopy and bilateral retrograde pyelograms. On the right pyelogram, extravasation of contrast in the retroperitoneum with no obvious connection between the distal ureter and the kidney. The patient underwent a CT scan which showed obvious fluid collection posterior to the bladder with retained contrast in this location, raising concern for ureteral injury. The patient overall seems to be stable. Her creatinine has improved over time and it is 1.1 today from 1.4 yesterday. Still recommend consideration for nephrostomy tube placement due to evidence of hydronephrosis, concern that the patient likely developed a ureteral stricture at this location and needs proximal drainage. The patient's renal function has improved. Uncertain if her body is no longer absorbing urine that is leaking out of the ureter or if it is just more hydronephrotic and not draining from the distal ureter section. We plan to place the nephrostomy tube today. The patient is n.p.o. I have discussed with Radiology to hopefully perform this morning. This is relayed to the patient. We will continue to monitor. Please call for concerns. cc: MD Smith Francisco MD [facility]TD[facility]
[2019-02-07] MEDS: DILAUDID IV PRN ×5 (08:35→23:43)
--- NOTE | 2019-02-07 08:50 | PROGRESS NOTE ---
DATE: 02/07/2019 SUBJECTIVE: This patient is resting comfortably in bed. She is still complaining of some abdominal pain, but she feels better. Yesterday, she started working with physical therapy in bed. The urine output is about the same compared with yesterday but BUN and creatinine are better. We will continue with the same management, and I will let Nephrology department to manage her fluids. OBJECTIVE: Vital signs: Temperature 97.6 degrees, pulse 85, respiratory rate 17, blood pressure 135/61, and oxygen saturation 99 on 2 L of nasal cannula. HEENT: Head normocephalic. No trauma. PERRLA. Neck: Supple. No JVD. No masses. Central trachea. Chest: Decreased breath sounds at the bases. Abdomen: Soft. Generalized tenderness to palpation mostly at the level of the perioperative area and right upper quadrant. No signs of peritoneal irritation. The wound is not covered. It looks clean, dry and intact, it has some ann. Ileostomy on the right side that looks fine. Extremities: No edema. No clubbing. No cyanosis. Neurological: This patient is alert and oriented x3. No focal deficits. LABORATORY: WBC 3.3, hemoglobin 9.1, hematocrit 27.7, and platelets 68,000. Sodium 139, potassium 4.2, chloride 109, bicarbonate 23, BUN 29, creatinine 1.1, glucose 106, calcium 7.3, phosphorus 2.3, and albumin 2.5. ASSESSMENT AND PLAN: 1. Synchronous cecal and rectal cancer, status post abdominal colectomy with ileostomy and diverting ileostomy, postoperative day #5. Her abdominal pain is better. She is still complaining of some discomfort. It is soft. I do not see any signs of infection. Surgery on board. 2. Acute kidney injury. Urine output is about the same compared with yesterday, but BUN and creatinine are better. She has a positive balance of more than 9 L. I will let Nephrology Department to evaluate the fluids. Given her past medical history of liver cirrhosis, probably she is 3rd spacing. 3. History of aortic valve replacement. Cardiology on board. Continue with same management. 4. History of breast cancer and uterine cancer aware. 5. History of liver cirrhosis, not related to alcohol. Continue to monitor. Continue with spironolactone. We are holding her Lasix. 6. Type 2 diabetes. She seems to be more stable. We will continue with her dose of Lantus. I will continue with the same management. 7. Borderline low blood pressure, stable mostly when she gets pain medication. 8. Hypomagnesemia resolved. 9. Normocytic anemia. Stable. 10. Right hydronephrosis. Urology Department already evaluated this patient. They did a cystoscopic exam and bilateral retrograde pyelograms. They found an obstruction at the level of the right ureter concerning for right lateral injury. The plan is to do a nephrostomy tube today. We will continue to monitor. CRITICAL CARE TIME: 30 minutes. cc: Smith Stacy MD
--- NOTE | 2019-02-07 09:00 | Diag Imaging Result Doc PS360 ---
EXAM: RETROGRADES 2 OR 3 FILMS HISTORY: BILAT RETORGRADE TECHNIQUE: 18 films submitted COMPARISON: None. FINDINGS: There are multiple skin ann overlying the right abdomen and pelvis. There is retrograde filling of the left ureter. No obstruction to retrograde flow. Normal filling of the renal pelvis and calyces. Normal drainage. There was then retrograde filling of the distal right ureter. The distal ureter is angled at 90 degrees with no filling of the ureter beyond this. An attempt was made to place a wire. No other filling of the more proximal right ureter. IMPRESSION: No filling of the majority of the right ureter. Electronically signed by Diego Pina 02/07/2019 8:57 AM
[2019-02-07] MEDS ORDERED: DIPRIVAN 1% 0 MG/0 ML BOTTLE ONE (10:33)
--- NOTE | 2019-02-07 11:01 | GENERAL SURGERY PROGRESS NOTE ---
DATE: 02/07/2019 SUBJECTIVE: She is postop day 7 today. OBJECTIVE: She is afebrile. Heart rate 95, blood pressure 113/46. Intake 2560. Output 1915. She is putting out liquid stool in her ileostomy. She has been able to take liquids by mouth satisfactorily. Her laboratory today shows a white count of 3300, hemoglobin 9.1, hematocrit 27, platelet count stable at 68,000. Her kidney function shows a BUN down to 29, creatinine down to 1.1 which is continued improvement. ASSESSMENT: 1. She is a week after total abdominal colectomy. Her ileostomy is functioning, her ileus is resolving and we will advance her diet. 2. Right ureteral obstruction. She is due for a percutaneous nephrostomy today. 3. Acute kidney injury. Her creatinine is down to 1.1. 4. Cirrhosis. She has had no evidence of bleeding. Her counts appear stable. White count is unchanged. Platelet count is stable as well. She has had no evidence of bleeding. 5. Arrhythmia. She has no PVCs currently and Cardiology is following along. PLAN: The plan will be to get her nephrostomy today. We hopefully then will be able get her Rodriguez out in the next 24 hours and advance her diet and then hopefully move her out to a regular room by Thursday if all continues well. cc: MD Smith Patel MD
[2019-02-07] MEDS ORDERED: DIPRIVAN 1% 500 MG/50 ML BOTTLE ONE (12:05)
--- NOTE | 2019-02-07 13:32 | Diag Imaging Result Doc PS360 ---
EXAM: NEPHROSTOGRAM NEW ACCESS INDICATION: Right hydronephrosis and urinary ascites TECHNIQUE: COMPARISON: None. FINDINGS: Risks, benefits, and alternatives were discussed with the patient and informed consent was obtained. Sedation was provided by anesthesiology. Local anesthesia was achieved with 1% lidocaine solution. One unit of platelets was infused during the procedure. Using ultrasound guidance, a lower pole calyx was accessed with an 18-gauge needle. Placement was confirmed by injecting iodinated contrast and urine return was noted. However, after multiple attempts, a wire was unable to be passed into the collecting system. The needle was repositioned with ultrasound guidance and again, the collecting system was accessed. However, I was still unsuccessful in passing the wire into the collecting system. At this point, the procedure was stopped due to concern for blood loss given the multiple access attempts in the patient's thrombocytopenia. If the patient remains stable, access can be reattempted tomorrow. There were no known complications, otherwise. IMPRESSION: Unsuccessful right nephrostomy. Please see above discussion. Electronically signed by Aleksander Patel 02/07/2019 1:30 PM
[2019-02-07] MEDS: ZOFRAN IV PRN (16:04)
[2019-02-08] MEDS: DILAUDID IV PRN ×3 (04:58→18:55)
[2019-02-08] MEDS: HUMALOG SUBQ SCH ×5 (04:58→21:53)
[2019-02-08 05:34] LABS: BASO# 0.01 X1000 (0.0-0.2); BASO% 0.2 % (0.0-0.8); EOS# 0.14 X1000 (0.0-0.7); EOS% 2.1 % (0.0-10.0); HEMATOCRIT 26.3 % (37.0-47.0); HEMOGLOBIN 8.4 g/dL (12.0-16.0); IMM GRAN# 0.06 X1000 (0.0-0.04); IMM GRAN% 0.9 % (0.0-0.5); LYMPH# 0.97 X1000 (1.2-3.4); LYMPH% 14.7 % (20.5-51.1); MCH 29.3 PG (27-31); MCHC 31.9 g/dL (33-37); MCV 91.6 FL (81-99); MONO# 0.74 X1000 (0.11-0.59); MONO% 11.2 % (1.7-9.3); NEUT% 70.9 % (42.2-75.2); PLT 93 X1000 (130-400); RBC 2.87 XMIL (4.2-5.4); WBC 6.62 X1000 (4.8-10.8)
[2019-02-08 05:44] LABS: ALBUMIN 2.4 g/dL (3.5-5.0); CALCIUM 7.2 mg/dL (8.8-10.2); CREATININE 1.2 mg/dL (0.5-0.9); PHOSPHORUS 2.9 mg/dL (2.7-4.5); POTASSIUM 4.8 mmol/L (3.5-5.1)
[2019-02-08] MEDS ORDERED: DIPRIVAN 1% 0 MG/0 ML BOTTLE ONE (08:05)
[2019-02-08] MEDS ORDERED: DIPRIVAN 1% 500 MG/50 ML BOTTLE ONE (08:06)
[2019-02-08] MEDS ORDERED: FENTANYL ONE (08:08)
[2019-02-08] MEDS ORDERED: XYLOCAINE 1% ONE (08:25)
[2019-02-08] MEDS ORDERED: NS 500 ML ONE (08:25)
[2019-02-08] MEDS: ALDACTONE PO SCH (09:02)
[2019-02-08] MEDS: PERIDEX MT SCH ×2 (09:02→21:53)
[2019-02-08] MEDS: LANTUS INSULIN SUBQ SCH (09:02)
--- NOTE | 2019-02-08 10:25 | PROGRESS NOTE ---
DATE: 03/11/2019 SUBJECTIVE: The patient complaining of right-sided flank pain today and denies significant abdominal pain. The patient was taken to Radiology yesterday and attempt was made to place a right nephrostomy tube. However, there was significant difficulty getting the tube into the collecting system itself. Several hours were spent attempting to place the tube itself. Ultimately, the tube was not able to be inserted. The patient has been fatigued and tired overnight. Vital signs have all been stable. The patient asked this morning whether she needs have a nephrostomy tube placed. OBJECTIVE: Vital signs: Temperature 99.2 degrees, heart rate 87, blood pressure 120/40, oxygen saturation 95% on nasal cannula. General: No acute distress. Resting comfortably in bed. Alert and oriented. Respiratory: Good respiratory effort without audible wheezing or rales. Abdomen: Soft, nontender, nondistended. No palpable masses. Midline incision closed with ann. Ileostomy present in the right lower quadrant. : No suprapubic tenderness. Patient does have some CVA tenderness on the right side. Urethral catheter in place draining clear yellow urine. LABORATORY DATA: White blood cell count 6.2, hemoglobin 8.4, hematocrit 26.3, platelets 93,000. Sodium 137, potassium 4.8, chloride 105, bicarb 22, BUN 27, creatinine 1.2, glucose 117. ASSESSMENT: Ms. Hernandez is an 78-year-old with type 2 diabetes, aortic stenosis status post aortic valve replacement and nonalcoholic cirrhosis, gastroesophageal reflux disease, nephrolithiasis, uterine cancer, breast cancer, and recently treated colon cancer with a total colectomy by Dr. Myers who presents in consultation regarding acute kidney injury and right hydronephrosis. The patient was taken the operating room on Thursday for cystoscopy, bilateral retrograde pyelograms. On retrograde pyelogram on the right collecting system there was extravasation of contrast in the retroperitoneum with no obvious connection to the distal ureter and the kidney. Concern arises that the patient has a right ureteral injury. The patient had a CT scan which showed a fluid collection posterior to the bladder with retained contrast. Ultimately, patient's renal function continues to improve and is 1.2 from 1.1 yesterday. However, I still think she needs a nephrostomy tube. We attempted placement yesterday and the system appeared to be relatively hydronephrotic. However, tube was unable to be inserted. Recommended proceeding again today. I talked with the patient as well as her daughter regarding right nephrostomy tube placement today. I went down and talked with Dr. Murrell in the radiology department who will attempt to proceed to perform the procedure later this morning. We will continue to monitor. Please call with questions or concerns. cc: MD Mukund Francisco MD MTDNestor
--- NOTE | 2019-02-08 11:07 | Diag Imaging Result Doc PS360 ---
EXAM: Percutaneous nephrostomy with ultrasound and fluoroscopic guidance NEW ACCESS 02/08/2019 HISTORY: Right ureteral obstruction, Hydronephrosis TECHNIQUE: Percutaneous nephrostomy with ultrasound and fluoroscopic guidance, six images. COMMENT: The risks and benefits of the procedure including the possibility of bleeding, infection, reaction to contrast or local anesthetic was discussed with the patient and she agreed to the procedure. Following sterile preparation of the skin posterior laterally on the right and administration of 1% lidocaine to the skin and deeper soft tissues, a posterior inferior calyx was punctured under ultrasonographic guidance and subsequently a guidewire was passed into the collecting system and down the ureter. At first it appeared that the guidewire within the bladder. A straight catheter was advanced down the guidewire and contrast was subsequently injected. This demonstrates an irregular urinoma, and it was clear that this was not in the bladder. Subsequently, a guidewire was again placed into the ureter and a 10.2-Peruvian cope loop nephrostomy catheter was advanced after dilatation of the tract and secured in the renal pelvis. Post placement contrast injection and nephrostogram demonstrates patency of the ureter to the level of the sacral promontory. At this point there is some extravasation of contrast indicating probable transection of the ureter. This is consistent with the appearance of the retrograde pyelogram performed on 02/04/2019. The transection is probably fairly distal. A fair amount of blood clot is demonstrated within the renal pelvis and the lower pole infundibulum and calyces. IMPRESSION: Successful placement of percutaneous nephrostomy. Apparent transection of the distal right ureter. Electronically signed by Freddy Murrell 02/08/2019 11:04 AM
[2019-02-08] MEDS: LIPOSYN 20% 250 ML IV SCH (11:14)
[2019-02-08] MEDS: CLINIMIX E 4.25%-5% SOLUTION 1,000 ML IV SCH (11:14)
--- NOTE | 2019-02-08 12:26 | PROGRESS NOTE ---
DATE: 02/08/2019 SUBJECTIVE: The patient reports feeling fine. She is just back from the interventional radiologist. She finally got the nephrostomy tubes in the right side placed. The patient is alert and oriented. No complaints at this time. OBJECTIVE: Vital Signs: Temperature 99.2 degrees, heart rate 87, respiratory rate 15, blood pressure 122/48, O2 saturation 95% on 2 L nasal cannula. General Examination: This is a chronically ill-appearing, 78-year-old, female lying in bed, in no acute distress. HEENT: Head is normocephalic and atraumatic. Mucous membranes are dry. Neck: No JVD noted. No carotid bruits. No lymphadenopathy. No thyromegaly. Cardiovascular Examination: S1 and S2 heard. No murmurs, gallops, or rubs. Regular rate and rhythm. Respiratory Examination: Decreased breath sounds globally. Patient is not using any accessory muscles or having work of breathing. Abdomen: Soft. Generalized tenderness to palpation, mostly at the level of the operative area. There are signs of peritoneal irritation though. There is an ileostomy tube placed in the right side. Extremities: No clubbing, cyanosis, or edema. Peripheral pulses present in both legs. Neurological Examination: The patient is alert and oriented x3. Moves 4 extremities. Laboratory Data: White cell count 6.62, hemoglobin 8.4, hematocrit 26.3, platelets 93,000. Creatinine 1.2, glucose 117, calcium 7.2, phosphorus 2.9. ASSESSMENT AND PLAN: 1. Cecal and rectal cancer, status post abdominal colectomy with ileostomy and diverting ileostomy. Postoperative day #6. Clinically, this patient is doing fine. Her pain apparently is well controlled. Dr. Myers from general surgery is following this patient. We will follow recommendations. 2. Acute kidney injury with right hydronephrosis. Renal function is actually much more stable. Dr. Toledo from general from urology is following this patient. He decided to try again nephrostomy tube placement and finally was successful putting it in this morning. We will follow recommendations from him. 3. History of transcatheter aortic valve replacement. Aware. Last note from cardiology from 5 days ago did not have any more acute recommendation for this patient. Help is appreciated. 4. History of breast cancer and uterine cancer. Aware. 5. History of non alcoholic liver cirrhosis. Family reports that this patient has developed also some esophageal varices and she is having some problems with eating so I think, at this point, what I am going to do is to start Clinimix and lipids, slowly dose those considering her heart issues. We will go from there because this patient is not eating properly. 6. Diabetes mellitus type 2. We will continue with sliding scale insulin and also Lantus. 7. Borderline low blood pressure. That is much better. Blood pressure is 120s in the morning. 8. Hypomagnesemia. Resolved. 9. Normocytic anemia. Stable. 10. Disposition. I think we need to monitor this patient 1 more day in the intensive care unit. We will see what general surgery has to say but I think this patient is getting better. cc: Mukund Navarrete MD MTDD
--- NOTE | 2019-02-08 14:18 | NEPHROLOGY PROGRESS NOTE ---
DATE: 02/08/2019 SUBJECTIVE: She had an unsuccessful percutaneous nephrostomy attempt yesterday. There is consideration for repeated attempt today. She complains of hurting, but no shortness of breath. OBJECTIVE: Vital Signs: Blood pressure 112/44, heart rate 85, respirations 14. Intake 1.7 L, output 1.2 L. General: No acute distress. Skin: Warm and dry. HEENT: Conjunctivae are pink. Heart: Irregular. Lungs: Equal. No crackles. Abdomen: Soft, but modestly tender. No guarding or rebound. Extremities: There is 1+ edema. No clubbing or cyanosis. IMPRESSION: Acute kidney injury. Creatinine has improved progressively. It is 1.2 today. BUN stable at 27. Electrolytes and acid-base are in target. We will sign off today, but if we can be of further assistance, please do not hesitate to call. cc: MD Mukund Woo MD
[2019-02-09] MEDS: HUMALOG SUBQ SCH ×6 (00:09→20:12)
[2019-02-09] MEDS: CLINIMIX E 4.25%-5% SOLUTION 1,000 ML IV SCH ×2 (00:10→14:19)
[2019-02-09 06:44] LABS: EOS# 0.09 X1000 (0.0-0.7); HEMATOCRIT 23.4 % (37.0-47.0); HEMOGLOBIN 7.4 g/dL (12.0-16.0); IMM GRAN# 0.02 X1000 (0.0-0.04); IMM GRAN% 0.4 % (0.0-0.5); LYMPH# 0.64 X1000 (1.2-3.4); LYMPH% 14.1 % (20.5-51.1); MCH 29.4 PG (27-31); MCHC 31.6 g/dL (33-37); MCV 92.9 FL (81-99); MONO# 0.32 X1000 (0.11-0.59); MONO% 7.1 % (1.7-9.3); MPV 11.1 FL (7.4-10.4); NEUT# 3.46 X1000 (1.4-6.5); NEUT% 76.4 % (42.2-75.2); PLT 72 X1000 (130-400); RBC 2.52 XMIL (4.2-5.4); RDW 14.9 % (11.5-14.5); WBC 4.53 X1000 (4.8-10.8)
[2019-02-09 07:15] LABS: CALCIUM 7.6 mg/dL (8.8-10.2); CREATININE 0.9 mg/dL (0.5-0.9); POTASSIUM 4.7 mmol/L (3.5-5.1)
--- NOTE | 2019-02-09 08:23 | PROGRESS NOTE ---
DATE: 02/09/2019 SUBJECTIVE: The patient went to Radiology yesterday and had placement of a right nephrostomy tube. This has been draining well with clear yellow urine with approximately 400 mL drainage with yellow tinge. The patient's right flank pain has improved. She states she has minimal abdominal pain. She denies any nausea or vomiting, and clinically feels like she is improving. Rodriguez catheter continues to drain with 640 cc recorded yesterday. OBJECTIVE: Vital Signs: Temperature 98.7 degrees, heart rate 67, blood pressure 98/40, oxygen saturation 100 percent on nasal cannula. Abdomen: Soft, nontender, and nondistended. No palpable masses. Ileostomy present in the right lower quadrant. Midline incision closed with ann. Respiratory: Good respiratory effort without audible wheezing or rales. : No suprapubic tenderness. Urethral catheter in place draining clear yellow urine. Nephrostomy tube in place in good position draining yellowish urine output. LABORATORY: White blood cell count 12.5, hemoglobin 7.4, hematocrit 23.4, and platelets 72,000. Sodium 135, potassium 4.7, chloride 105, bicarb 25, BUN 32, creatinine 0.9 and glucose 209. ASSESSMENT AND PLAN: Ms. Hernandez is an 78-year-old with type 2 diabetes, aortic stenosis status post aortic valve replacement, nonalcoholic cirrhosis, gastroesophageal reflux disease, nephrolithiasis, uterine cancer, breast cancer, and recent colectomy for colon cancer by Dr. Myers. The patient went to the radiologist and had placement of a nephrostomy tube. This has been draining well. Overall, patient clinically appears to be improving with creatinine of 0.9, it was 1.2 yesterday. Denies any nausea or vomiting. We will plan to remove her Rodriguez catheter this morning. The patient will likely need a bedside commode or bed murillo to urinate. Encouraged her to remain ambulatory. We will continue to monitor. Please call with questions or concerns. cc: MD Mukund Francisco MD MTDD
[2019-02-09] MEDS: ALDACTONE PO SCH (10:14)
[2019-02-09] MEDS: PERIDEX MT SCH ×2 (10:14→20:11)
[2019-02-09] MEDS: LANTUS INSULIN SUBQ SCH (10:15)
[2019-02-09] MEDS: DILAUDID IV PRN ×3 (11:18→20:11)
[2019-02-09] MEDS: LIPOSYN 20% 250 ML IV SCH (14:19)
--- NOTE | 2019-02-09 14:54 | PROGRESS NOTE ---
DATE: 02/09/2019 SUBJECTIVE: Patient reports feeling fine. No other complaints. OBJECTIVE: Vital Signs: Temperature 98.8 degrees, heart rate 78, respiratory rate 16, blood pressure 104/41, O2 saturation 100% on 2 L nasal cannula. General: This is a chronically ill- appearing, 78-year-old female, lying in bed, in no acute distress. Cardiovascular: S1, S2 heard. No murmurs, gallops, or rubs. Regular rate and rhythm. Respiratory: Clear bilaterally to auscultation. Some decreased breath sounds mostly noted in both bases. Patient not using any accessory muscles or having work of breathing. Abdomen: Soft. Mild tenderness to palpation, mostly at the level of the operative area but there is no sign of peritoneal irritation. Ileostomy tube in place on the right side. Extremities: No clubbing, cyanosis, or edema. Peripheral pulses present in both legs. Neurological: Patient alert and oriented x3. Moves 4 extremities. LABORATORY DATA: White cell count 4.53, hemoglobin 7.4, hematocrit 43.4, platelets 72,000. Normal BMP. ASSESSMENT AND PLAN: 1. Cecal and rectal cancer status post abdominal colectomy with diverting ileostomy postoperative day #7. At this point, clinically this patient is better. She has been transferred from out of the intensive care unit yesterday. Dr. Myers from General Surgery following this patient. We will follow recommendations. 2. Acute kidney injury with right hydronephrosis. Patient has been placed a right nephrostomy tube. Since then, renal function is completely back to normal. Dr. Toledo from Urology is following this patient. He recommended to keep this tube in for at least 6 weeks. We will follow recommendations. 3. History of transcatheter aortic valve replacement. Aware. 4. History of breast cancer and uterine cancer. Aware. 5. History of nonalcoholic liver cirrhosis. Family reports that this patient has developed some esophageal viruses and she was experiencing some difficulty in swallowing. That is why we have started Clinimix and lipids on this patient. 6. Diabetes mellitus type 2. We will continue with sliding scale insulin and Lantus. 7. Borderline low blood pressure. Blood pressure continues to be in the range of low 100s and high 90s. We will continue to monitor. 8. Hypomagnesemia. Resolved. 9. Normocytic anemia. Stable. DISPOSITION: At this point, the patient is much more stable. Physical Therapy working with this patient. We hopefully will be able to send this patient to rehab facility whenever she is cleared by General Surgery. cc: Mukund Navarrete MD MTDD
--- NOTE | 2019-02-09 21:19 | GENERAL SURGERY PROGRESS NOTE ---
DATE: 02/09/2019 SUBJECTIVE: Rukhsana is now on the floor. She has had her Rodriguez removed. OBJECTIVE: She is afebrile, heart rate 78, blood pressure 114/38. She has stood up today. Her ileostomy is working well. Her wound is fine. Her nephrostomy tube is draining satisfactorily. She had 932 in and 1330 out. She has just taken small bites of food. She is on amino acids and lipids. White count is 4500, hemoglobin 7.4, hematocrit 23, BUN 32, creatinine 0.9. Sugars in the low 200s. ASSESSMENT: Her ileus is resolving after her abdominal colectomy. We will stimulate her appetite somewhat. Acute kidney injury has resolved. Hydronephrosis has been treated with a nephrostomy tube, and she will ultimately need a ureteral implant reimplant on the right side. PLAN: Now will be to of course encourage her p.o. intake and get her strong enough to where she can go to rehab. cc: MD Mukund Patel MD
[2019-02-10] MEDS: HUMALOG SUBQ SCH ×7 (00:06→23:42)
[2019-02-10] MEDS: CLINIMIX E 4.25%-5% SOLUTION 1,000 ML IV SCH ×3 (00:09→13:45)
[2019-02-10 06:56] LABS: BASO% 0.2 % (0.0-0.8); EOS# 0.13 X1000 (0.0-0.7); EOS% 2.8 % (0.0-10.0); HEMATOCRIT 24.3 % (37.0-47.0); HEMOGLOBIN 7.7 g/dL (12.0-16.0); IMM GRAN% 0.4 % (0.0-0.5); LYMPH# 0.57 X1000 (1.2-3.4); LYMPH% 12.4 % (20.5-51.1); MCH 29.3 PG (27-31); MCHC 31.7 g/dL (33-37); MCV 92.4 FL (81-99); MONO# 0.37 X1000 (0.11-0.59); MONO% 8.1 % (1.7-9.3); MPV 11.1 FL (7.4-10.4); NEUT# 3.48 X1000 (1.4-6.5); NEUT% 76.1 % (42.2-75.2); PLT 71 X1000 (130-400); RBC 2.63 XMIL (4.2-5.4); RDW 14.8 % (11.5-14.5); WBC 4.58 X1000 (4.8-10.8)
[2019-02-10 06:57] LABS: BASO# 0.01 X1000 (0.0-0.2); IMM GRAN# 0.02 X1000 (0.0-0.04)
[2019-02-10 07:09] LABS: AGAP 3; BUN 29 mg/dL (8-22); CALCIUM 7.4 mg/dL (8.8-10.2); CHLORIDE 101 mmol/L (98-107); COSMO 276; CREATININE 0.6 mg/dL (0.5-0.9); ESTIMATED GFR > 60; GLUCOSE 196 mg/dL (70-104); POTASSIUM 4.8 mmol/L (3.5-5.1); SODIUM 132 mmol/L (136-145); TCO2 28 mmol/L (25-35)
--- NOTE | 2019-02-10 08:47 | PROGRESS NOTE ---
DATE: 02/10/2019 SUBJECTIVE: No acute events overnight. The patient's Rodriguez catheter was removed yesterday. The patient is able to urinate. Her nephrostomy tube is draining well with clear light pink urine. No clots present. The patient denies any flank pain. The patient is feeling more energized today and desires working with physical therapy. The patient worked with physical therapy a small amount yesterday. The patient was up to bedside commode to urinate. Ostomy with large output; 2100 recorded yesterday. OBJECTIVE: Vital Signs: Temperature 97.9 degrees, heart rate 86, blood pressure 105/33, O2 saturations 99. General: No acute distress. Resting comfortably in bed. Alert and oriented x3. Respiratory: Good respiratory effort without audible wheezing or rales. Abdomen: Soft, nontender, nondistended. No palpable masses or hepatosplenomegaly. Midline incision covered with ann. Right lower quadrant with ileostomy present connected to a drainage bag with thin output. Nephrostomy tube in place draining light pink urine. No suprapubic tenderness or distention. LABS: White blood cell count 4.8, hemoglobin 7.7, hematocrit 24.3, platelets 71. Sodium 132, potassium 4.8, chloride 101, bicarbonate 28. BUN 29, creatinine 0.6, glucose 196. ASSESSMENT/PLAN: Ms. Hernandez is an 78-year-old with type 2 diabetes, aortic stenosis times post aortic valve replacement, nonalcoholic cirrhosis, gastroesophageal reflux disease, nephrolithiasis, uterine cancer, breast cancer, recent colectomy by Dr. Myers for colon cancer. Had cystoscopy and bilateral retrograde pyelograms last Thursday, which showed right ureteral injury. The patient had a nephrostomy tube on 02/08/2019. The patient's renal function has improved with creatinine 0.6 today from 0.9. Rodriguez catheter is removed. She was able to urinate yesterday after catheter removal. Clinically, she states that she is feeling better and feels like she has more energy. Encouraged to remain ambulatory today up to the chair or the side of the bed. We will continue to monitor her renal function and urinary output. The patient has had slightly elevation in her ostomy output over the past 24 hours. Encourage her to remain hydrated as tolerates. We will continue to monitor. Please call with questions or concerns. cc: MD Mukund Francisco MD [facility]
[2019-02-10] MEDS: LANTUS INSULIN SUBQ SCH (09:01)
[2019-02-10] MEDS: ALDACTONE PO SCH (09:01)
[2019-02-10] MEDS: PERIDEX MT SCH ×2 (09:01→19:40)
[2019-02-10] MEDS: MEGACE LIQUID PO SCH (09:01)
--- NOTE | 2019-02-10 10:36 | PROGRESS NOTE ---
DATE: 02/10/2019 SUBJECTIVE: Patient reports feeling fine. No complaints at this time. She is sitting on the bed. No acute issues noted as per nursing staff overnight. OBJECTIVE: Vital Signs: Temperature 97.9 degrees, heart rate 88, respiratory rate 16, blood pressure 105/83, O2 saturation 99% on room air. General Examination: This is a chronically ill- looking, 78-year-old female lying in bed, in no acute distress. Cardiovascular Examination: S1 and S2 heard. No murmurs, gallops, or rubs. Regular rate and rhythm. Respiratory Examination: Clear bilaterally to auscultation. Decreased breath sounds noted in both pulmonary bases. Patient is not using any accessory muscles or having work of breathing. Abdomen: Soft. Mild tenderness to palpation at the level of the operative area but there are no signs of peritoneal irritation. Ileostomy tube in place in the right side. Extremities: No clubbing, cyanosis, or edema. Peripheral pulses present in both legs. Neurological Examination: The patient is alert and oriented x3. Moves 4 extremities. Laboratory Data: Reviewed. ASSESSMENT AND PLAN: 1. Cecal and rectal cancer, status post abdominal colectomy with diverting ileostomy, postoperative day #8. Clinically, this patient is doing fine. Dr. Myers from general surgery is following this patient. Apparently, his ileus is resolved. We will follow recommendations from general surgery. 2. Acute kidney injury with right hydronephrosis. Nephrostomy tube had been placed 2 days ago. Renal function continues to improve. Dr. Toledo from urology is following this patient. We will follow recommendations. 3. History of known alcoholic liver cirrhosis. Aware. We will continue to monitor. 4. History of breast cancer and uterine cancer. Aware. 5. History of transcatheter aortic valve replacement. Aware. 6. Diabetes mellitus type 2. We will continue with sliding scale insulin. Accu-Chek before meals and also at bedtime, and also Lantus as well. 7. Hypomagnesemia, resolved. 8. Disposition. At this point, the patient expressed her desire to go to [facility]. Patient said that she has been there two times and she wanted to go there. We will inform home health care social worker about her wishes. cc: Mukund Navarrete MD
[2019-02-10] MEDS: DILAUDID IV PRN ×2 (11:07→21:12)
[2019-02-10] MEDS ORDERED: PERCOCET-10 PO PRN (12:09)
[2019-02-10] MEDS: LIPOSYN 20% 250 ML IV SCH (16:56)
--- NOTE | 2019-02-10 18:46 | GENERAL SURGERY PROGRESS NOTE ---
DATE: 02/10/2019 SUBJECTIVE: She is now 10 days after a total abdominal colectomy with diverting ileostomy. Her appetite has picked up a little bit. Her stoma is working. OBJECTIVE: Her temp is 99.2 degrees, heart rate 84, blood pressure 120/40. Her nephrostomy tube is functioning satisfactorily. She is putting fluid in her ileostomy as well. Intake yesterday 1,048, output 2,895. LABS: White count 4,600, hemoglobin 7.7, hematocrit 24.3. BUN 29, creatinine 0.6. Sugars are still on the upper 100, lower 200 range. ASSESSMENT: She seems to be gaining strength. There is minimal drainage from her lower wound. She has been upright. We now have her on Megace to stimulate her appetite. I will try to switch her to p.o. pain medicine. We will try her on oxycodone as she does not tolerate hydrocodone well. cc: MD Mukund Patel MD
[2019-02-11] MEDS: HUMALOG SUBQ SCH ×6 (04:05→22:02)
[2019-02-11] MEDS: PERIDEX MT SCH ×3 (04:05→21:16)
[2019-02-11] MEDS: CLINIMIX E 4.25%-5% SOLUTION 1,000 ML IV SCH ×2 (04:06→16:19)
[2019-02-11 06:59] LABS: HEMOGLOBIN 7.7 g/dL (12.0-16.0); RBC 2.61 XMIL (4.2-5.4); WBC 4.44 X1000 (4.8-10.8)
[2019-02-11 07:00] LABS: BASO# 0.01 X1000 (0.0-0.2); BASO% 0.2 % (0.0-0.8); EOS# 0.12 X1000 (0.0-0.7); EOS% 2.7 % (0.0-10.0); HEMATOCRIT 23.9 % (37.0-47.0); IMM GRAN# 0.02 X1000 (0.0-0.04); IMM GRAN% 0.5 % (0.0-0.5); LYMPH# 0.71 X1000 (1.2-3.4); MCH 29.5 PG (27-31); MCHC 32.2 g/dL (33-37); MCV 91.6 FL (81-99); MONO# 0.42 X1000 (0.11-0.59); MONO% 9.5 % (1.7-9.3); MPV 11.5 FL (7.4-10.4); NEUT# 3.16 X1000 (1.4-6.5); NEUT% 71.1 % (42.2-75.2); PLT 67 X1000 (130-400); RDW 14.6 % (11.5-14.5)
[2019-02-11 07:04] LABS: AGAP 4; BUN 33 mg/dL (8-22); CALCIUM 7.9 mg/dL (8.8-10.2); CHLORIDE 103 mmol/L (98-107); COSMO 278; CREATININE 0.6 mg/dL (0.5-0.9); ESTIMATED GFR > 60; GLUCOSE 216 mg/dL (70-104); POTASSIUM 4.9 mmol/L (3.5-5.1); SODIUM 132 mmol/L (136-145); TCO2 25 mmol/L (25-35)
--- NOTE | 2019-02-11 09:05 | PROGRESS NOTE ---
DATE: 02/11/2019 SUBJECTIVE: No acute events yesterday. The patient was up to the bedside for approximately 3 hours yesterday. She states her pain is well controlled. She did have some itching that she describes related to taking Percocet yesterday, but denies that this morning. The patient has been voiding without issue. Her ostomy is draining well, and her nephrostomy tube is draining thin pinkish urine. OBJECTIVE: Vital signs: Temperature 98.9 degrees, heart rate 84, blood pressure 109/46, and oxygen saturation 99%. General: No acute distress. Resting comfortably in bed. General: No acute distress. Alert and oriented x3. Respiratory: Good respiratory effort without audible wheezing or rales. Abdomen: Soft, nontender, and nondistended. No palpable masses. Ileostomy present in the right lower quadrant. Midline incision with ann. : No suprapubic tenderness. No CVA tenderness. Nephrostomy tube in place with no evidence of any erythema or drainage around the tube. Catheter draining light pink urine. LABORATORY: White blood cell count 4.4, hemoglobin 7.7, hematocrit 23.9, and platelets 67,000. Sodium 132, potassium 4.9, chloride 103, bicarb 25, BUN 33, creatinine 0.6, and glucose 216. ASSESSMENT AND PLAN: The patient is an 78 year old with type 2 diabetes, aortic stenosis, status post aortic valve replacement, non alcoholic cirrhosis, gastroesophageal reflux disease, nephrolithiasis, uterine cancer, breast cancer, and recent colectomy by Dr. Myers for colon cancer who had a cystoscopy bilateral retrograde pyelograms last Thursday, which showed right ureteral injury. Patient had a nephrostomy tube placed on 02/08/2019. The patient's renal function remained stable at 0.6. Her catheter was removed on Thursday. The patient has been able to urinate multiple times. Overall, she is feeling well and has improved energy. The patient has been ambulatory with physical therapy, and was up to the chair for approximately 3 hours yesterday. She continues with good urinary output. Nephrostomy tube in good position with no drainage around the catheter. Overall, she appears to be improving, now just awaiting her long-term placement. She will continue to need therapy services while in the hospital. We will continue to monitor. Please call with questions or concerns. cc: MD Mukund Francisco MD MTDD
[2019-02-11] MEDS: MEGACE LIQUID PO SCH (09:43)
[2019-02-11] MEDS: ALDACTONE PO SCH (09:44)
[2019-02-11] MEDS: LANTUS INSULIN SUBQ SCH (09:44)
[2019-02-11] MEDS: DILAUDID IV PRN ×2 (11:07→21:16)
--- NOTE | 2019-02-11 14:35 | PROGRESS NOTE ---
DATE: 02/11/2019 SUBJECTIVE: Patient reports feeling fine. She reports working with physical therapy. No complaints noted at this time. OBJECTIVE: Vital Signs: Temperature 98 degrees, heart rate 90, respiratory rate 24, and blood pressure 123/32, and O2 saturation 100% 2 L nasal cannula. General: This is a chronically ill- appearing 78-year-old female lying in bed in no acute distress. HEENT: Head is normocephalic and atraumatic. Neck: No JVD noted. No carotid bruits. No lymphadenopathy. No thyromegaly. Cardiovascular: S1, S2 heard. No murmurs, gallops, or rubs. Regular rate and rhythm. Respiratory: Clear bilaterally to auscultation. No work of breathing or using accessory muscles. Abdomen: Soft. Mild tenderness to palpation at the level of the operative area but no signs of peritoneal irritation. Ileostomy tube in place on the right side. Extremities: No clubbing, cyanosis, or edema. Peripheral pulses present in both legs. Neurological: Patient alert and oriented x3. Moves all 4 extremities. ASSESSMENT AND PLAN: 1. Cecal and rectal cancer status post abdominal colectomy with diverting ileostomy postoperative day #9. Clinically, this patient is doing fine not complaining of any abdominal pain. Patient is working with physical therapy. Dr. Myers from General Surgery following this patient. 2. Acute kidney injury with right hydronephrosis. Nephrostomy tube has been placed [address] Toledo from Urology is following along with this patient. We will follow recommendations. 3. History of non alcoholic liver cirrhosis. Aware. We will continue to monitor. 4. History of breast cancer and uterine cancer aware. 5. History of transcatheter aortic valve replacement aware. 6. Diabetes mellitus type 2. We will continue with sliding scale insulin and Accu-Chek before meals, and also at bedtime. 7. Disposition. At this point, the patient is waiting for a rehab bed in . cc: Mukund Navarrete MD
[2019-02-11] MEDS ORDERED: ULTRAM PO PRN (15:08)
[2019-02-11] MEDS: LIPOSYN 20% 250 ML IV SCH (16:19)
--- NOTE | 2019-02-11 21:25 | GENERAL SURGERY PROGRESS NOTE ---
DATE: 02/11/2019 Pat is doing generally well. She ate breakfast. She did not eat any lunch. She did ambulate today to the door and back. Her strength seems to be improving. Her hemodynamics are good. She has less leakage from her lower wound. Her ileostomy is functioning well. Her nephrostomy tube is functioning as well. White count remains the same. Hemoglobin the same. Chemistry the same. I did discuss her pathology today. The plan is to offer her Ultram and a sleeping pill tonight as she transitions off Dilaudid. She does not really tolerate Percocet well. Dr. Baker is to cover the weekend. We hope to get her to rehab by Thursday or Thursday of next week. cc: MD Mukund Patel MD
[2019-02-12] MEDS: HUMALOG SUBQ SCH ×6 (01:13→20:56)
[2019-02-12] MEDS: CLINIMIX E 4.25%-5% SOLUTION 1,000 ML IV SCH ×2 (04:20→17:43)
[2019-02-12 07:48] LABS: BASO# 0.01 X1000 (0.0-0.2); BASO% 0.2 % (0.0-0.8); EOS# 0.13 X1000 (0.0-0.7); EOS% 2.2 % (0.0-10.0); HEMATOCRIT 24.9 % (37.0-47.0); HEMOGLOBIN 7.9 g/dL (12.0-16.0); IMM GRAN# 0.02 X1000 (0.0-0.04); IMM GRAN% 0.3 % (0.0-0.5); LYMPH# 0.83 X1000 (1.2-3.4); MCH 29.5 PG (27-31); MCHC 31.7 g/dL (33-37); MCV 92.9 FL (81-99); MONO# 0.67 X1000 (0.11-0.59); MONO% 11.3 % (1.7-9.3); MPV 12.2 FL (7.4-10.4); NEUT# 4.26 X1000 (1.4-6.5); PLT 78 X1000 (130-400); RBC 2.68 XMIL (4.2-5.4); WBC 5.92 X1000 (4.8-10.8)
[2019-02-12] MEDS: LANTUS INSULIN SUBQ SCH (08:54)
[2019-02-12] MEDS: MEGACE LIQUID PO SCH (08:54)
[2019-02-12] MEDS: ALDACTONE PO SCH (08:54)
[2019-02-12] MEDS: PERIDEX MT SCH ×2 (08:55→20:56)
[2019-02-12 10:03] LABS: AGAP 9; BUN 34 mg/dL (8-22); CALCIUM 8.4 mg/dL (8.8-10.2); CHLORIDE 98 mmol/L (98-107); CREATININE 0.7 mg/dL (0.5-0.9); ESTIMATED GFR > 60; SODIUM 129 mmol/L (136-145); TCO2 22 mmol/L (25-35)
[2019-02-12] MEDS: LIPOSYN 20% 250 ML IV SCH (10:15)
[2019-02-12] MEDS: DILAUDID IV PRN (10:22)
[2019-02-12 10:38] LABS: POTASSIUM 5.4 mmol/L (3.5-5.1)
[2019-02-12 10:39] LABS: COSMO 277; GLUCOSE 245 mg/dL (70-104)
[2019-02-12] MEDS ORDERED: ULTRAM PO PRN (10:42)
[2019-02-12] MEDS: REQUIP PO SCH ×2 (10:57→20:56)
--- NOTE | 2019-02-12 12:02 | PROGRESS NOTE ---
DATE: 02/12/2019 SUBJECTIVE: The patient reports feeling fine, reports some restless leg, and she wants to try something for that. OBJECTIVE: Vitals: Temperature 99.1, heart rate 100, respiratory rate 22, blood pressure 125/30, O2 saturation 100% 3 nasal cannula. General examination: This is a 78-year-old female lying in bed in no acute distress. Cardiovascular exam: S1, S2 heard. No murmurs, gallops, or rubs. Regular rate and rhythm. Respiratory: Clear bilaterally to auscultation, no work of breathing, no use of accessory muscles. Abdomen: Soft, mild tenderness to palpation at the level of operative area. No signs of peritoneal irritation. Ileostomy tube in place on the right side. Extremities: No clubbing, cyanosis, or edema. Peripheral pulses present in both legs. Neurological: Patient alert and oriented x3. Moves all 4 extremities. LABORATORY DATA: Reviewed. ASSESSMENT AND PLAN: 1. Cecal and rectal cancer status post abdominal colectomy with diverting ileostomy postoperative day number 10. Clinically, this patient continues to improve. Dr. Myers from General Surgery is following this patient and he expects to have this patient sent to rehab facility at the middle of next week. 2. Acute kidney injury with right hydronephrosis. Nephrostomy tube has been placed 4 days ago and since then patient has good renal function. Urology is following this patient. 3. History of nonalcoholic liver cirrhosis. Aware. We will continue to monitor. 4. History of breast cancer and uterine cancer. Aware. 5. History of transcatheter aortic valve replacement. Aware. 6. Diabetes mellitus type 2. We will continue with sliding scale insulin and Accu-Chek before meals, and also at bedtime. 7. Disposition. At this point, the patient is waiting for a rehab bed in [facility]. cc: Mukund Navarrete MD
[2019-02-12] MEDS ORDERED: NS 1,000 ML IV ONE (14:18)
[2019-02-12] MEDS ORDERED: NS 500 ML IV ONE (20:44)
[2019-02-12] MEDS ORDERED: TUMS EXTRA STRENGTH PO ONE (20:45)
[2019-02-12] MEDS: AMBIEN PO PRN ×2 (21:09→22:40)
[2019-02-12 23:14] LABS: HEMATOCRIT 27.1 % (37.0-47.0)
[2019-02-12 23:31] LABS: HEMOGLOBIN 8.7 g/dL (12.0-16.0)
[2019-02-13] MEDS: HUMALOG SUBQ SCH ×6 (01:37→21:29)
[2019-02-13] MEDS ORDERED: NS 500 ML IV ONE (02:52)
--- NOTE | 2019-02-13 04:23 | GENERAL SURGERY PROGRESS NOTE ---
DATE: 02/12/2019 SUBJECTIVE: The patient says she is feeling better. She has more strength and less pain. She is eating better. OBJECTIVE: Vital signs: She is afebrile. Vital signs are stable. General: She is awake, alert, oriented x3. No acute distress. Gastrointestinal: Soft, nondistended, minimally tender. Incision is clean, dry, and intact. Right lower quadrant ileostomy is pink and patent. LABORATORY: CBC was reviewed, unremarkable. BMP was reviewed and notable for sodium 129, potassium 5.4, BUN is 34, creatinine 0.7. ASSESSMENT/PLAN: An 78-year-old female status post total abdominal colectomy with right ureteral injury, and now right nephrostomy tube. Overall, she is making steady progress. Her electrolytes were a little bit off today. I am going to give her a low rate of normal saline overnight and recheck tomorrow. We are anticipating rehab early next week. cc: MD Mukund Kingsley MD
[2019-02-13 07:09] LABS: BASO# 0.02 X1000 (0.0-0.2); BASO% 0.3 % (0.0-0.8); EOS# 0.09 X1000 (0.0-0.7); EOS% 1.2 % (0.0-10.0); HEMATOCRIT 25.1 % (37.0-47.0); HEMOGLOBIN 8.1 g/dL (12.0-16.0); IMM GRAN# 0.04 X1000 (0.0-0.04); IMM GRAN% 0.5 % (0.0-0.5); LYMPH# 0.73 X1000 (1.2-3.4); MCH 29.3 PG (27-31); MCHC 32.3 g/dL (33-37); MCV 90.9 FL (81-99); MONO# 0.84 X1000 (0.11-0.59); MONO% 11.5 % (1.7-9.3); MPV 12.1 FL (7.4-10.4); NEUT# 5.56 X1000 (1.4-6.5); NEUT% 76.5 % (42.2-75.2); PLT 82 X1000 (130-400); RBC 2.76 XMIL (4.2-5.4); RDW 14.9 % (11.5-14.5); WBC 7.28 X1000 (4.8-10.8)
[2019-02-13 07:29] LABS: AGAP 6; BUN 32 mg/dL (8-22); CALCIUM 8.2 mg/dL (8.8-10.2); CHLORIDE 103 mmol/L (98-107); COSMO 281; CREATININE 0.6 mg/dL (0.5-0.9); ESTIMATED GFR > 60; GLUCOSE 278 mg/dL (70-104); POTASSIUM 5.4 mmol/L (3.5-5.1); SODIUM 132 mmol/L (136-145); TCO2 23 mmol/L (25-35)
[2019-02-13] MEDS: CLINIMIX E 4.25%-5% SOLUTION 1,000 ML IV SCH ×2 (10:28→21:25)
[2019-02-13] MEDS: ZOFRAN IV PRN (10:28)
[2019-02-13] MEDS: LIPOSYN 20% 250 ML IV SCH (10:28)
[2019-02-13] MEDS: LANTUS INSULIN SUBQ SCH (10:30)
[2019-02-13] MEDS: REQUIP PO SCH ×2 (10:51→21:28)
[2019-02-13] MEDS: DILAUDID IV PRN (10:57)
--- NOTE | 2019-02-13 12:25 | GENERAL SURGERY PROGRESS NOTE ---
DATE: 02/13/2019 SUBJECTIVE: The patient says she had a terrible night, mainly complaining of some pain and mostly of restless legs. She did get Requip last night but that gave her no relief. She reports she has restless legs at home sometimes and magnesium seems to help. She also says all prescription pain medicines seem to cause the restless legs. OBJECTIVE: She is afebrile. Vital signs are stable. Her ostomy put out 3300 mL. Her nephrostomy put out 1225 mL. General: She is awake, alert, oriented x4. Sitting up on the side of the bed. No acute distress. GI: Soft, mildly tender. Incision is clean, dry, and intact. Stoma pink and patent. Laboratory: White blood cell count 7.3, hemoglobin 8.1, hematocrit 25.1. Electrolytes reviewed and stable. Blood sugar remains in the 300s. Sodium a little better today at 132. ASSESSMENT/PLAN: An 78-year-old female status post total abdominal colectomy with ileostomy and right ureteral injury, now status post right nephrostomy. Her main complaint is restless legs. We will stop the narcotics and give her Tylenol for pain and give her some magnesium oxide to try to help the restless legs. cc: MD Mukund Kingsley MD
[2019-02-13] MEDS: MAG-OX PO SCH ×2 (13:06→21:28)
[2019-02-13] MEDS: PERIDEX MT SCH ×2 (13:06→21:28)
[2019-02-13] MEDS: ALDACTONE PO SCH (13:06)
[2019-02-13] MEDS: MEGACE LIQUID PO SCH (13:06)
--- NOTE | 2019-02-13 15:06 | PROGRESS NOTE ---
DATE: 02/13/2019 SUBJECTIVE: Patient continues to report restless leg syndrome. Apparently, she thinks that the pain medication was causing that but at the same time, she is concerned that she needs a stronger medication than Tylenol to have her pain under control. The patient also reports that she needs just 5 mg of Ambien to sleep and she was not sleeping well. OBJECTIVE: Vital Signs: Temperature 98.3 degrees, heart rate 69, respiratory rate 14, blood pressure 117/40, O2 saturation 97% on room air. General Examination: This is a chronically ill- looking, 78-year-old female lying in bed, in no acute distress. Cardiovascular: S1, S2 heard. No murmurs, gallops, or rubs. Regular rate and rhythm. Respiratory: The bilaterally to auscultation. No work of breathing or using accessory muscles. Abdomen: Soft. Mild tenderness to palpation in the right upper quadrant and at the level of the operative area, but no signs of peritoneal irritation. Ileostomy tube in place in the right side. Extremities: No clubbing, cyanosis, or edema. Peripheral pulses present in both legs. Neurological: Patient is alert and oriented x3. Moves 4 extremities. LABORATORY DATA: Reviewed. ASSESSMENT AND PLAN: 1. Cecal and rectal cancer status post abdominal colectomy with diverting ileostomy, postoperative day #11. Clinically, this patient from a surgical standpoint is doing okay. Dr. Myers is following this patient. Because this patient was complaining of mild abdominal pain in the right upper quadrant that she has not been during the last week and as per patient concern, I think we are going to order an abdominal ultrasound and we will go from there. 2. For pain control we agreed to use a different medication, in this case Demerol 50 mg p.o. q.3 hours p.r.n. and see if that medication helps and not produce more restless legs syndrome. 3. Acute kidney injury with right hydronephrosis, stable. Urology has been following this patient. 4. History of nonalcoholic liver cirrhosis with esophageal varices. Aware. We will continue to monitor. 5. History of breast cancer and uterine cancer. Aware. 6. History of transcatheter aortic valve replacement. Aware. 7. Diabetes mellitus type 2. We will continue with sliding scale insulin and Accu-Chek before meals and also at bedtime. 8. Disposition. At this point, we are waiting for a rehab bed in [facility]. cc: Mukund Navarrete MD
[2019-02-13] MEDS: DEMEROL PO PRN ×2 (15:18→19:20)
--- NOTE | 2019-02-13 19:26 | Diag Imaging Result Doc PS360 ---
EXAM: US ABDOMEN-COMPLETE HISTORY: abdominal pain TECHNIQUE: Abdominal ultrasound COMPARISON: None. FINDINGS: No abdominal aortic aneurysm. Normal inferior vena cava. There is fatty infiltration of the liver. A small amount of fluid is found about the liver. Normal pancreatic body. Portions of the head and tail are obscured. Normal right kidney. No hydronephrosis. No focal splenic abnormality. Normal left kidney. No hydronephrosis. Normal gallbladder. The common bile that measures 5 mm. IMPRESSION: 1.Cholecystectomy 2.Fatty infiltration of the liver with small amount of fluid about the liver Electronically signed by Diego Pina 02/13/2019 7:23 PM
[2019-02-13] MEDS: AMBIEN PO SCH (21:28)
[2019-02-14] MEDS: HUMALOG SUBQ SCH ×6 (01:29→20:56)
[2019-02-14 06:35] LABS: ESTIMATED GFR > 60
[2019-02-14 06:54] LABS: BASO# 0.01 X1000 (0.0-0.2); BASO% 0.2 % (0.0-0.8); EOS# 0.17 X1000 (0.0-0.7); EOS% 2.8 % (0.0-10.0); HEMATOCRIT 24.3 % (37.0-47.0); HEMOGLOBIN 7.7 g/dL (12.0-16.0); IMM GRAN# 0.02 X1000 (0.0-0.04); IMM GRAN% 0.3 % (0.0-0.5); LYMPH% 13.2 % (20.5-51.1); MCH 29.1 PG (27-31); MCHC 31.7 g/dL (33-37); MCV 91.7 FL (81-99); MONO# 0.83 X1000 (0.11-0.59); MONO% 13.7 % (1.7-9.3); NEUT# 4.24 X1000 (1.4-6.5); NEUT% 69.8 % (42.2-75.2); PLT 92 X1000 (130-400); RBC 2.65 XMIL (4.2-5.4); WBC 6.07 X1000 (4.8-10.8)
[2019-02-14 06:57] LABS: AGAP 5; BUN 33 mg/dL (8-22); CALCIUM 7.8 mg/dL (8.8-10.2); CHLORIDE 103 mmol/L (98-107); COSMO 276; CREATININE 0.7 mg/dL (0.5-0.9); GLUCOSE 211 mg/dL (70-104); SODIUM 131 mmol/L (136-145); TCO2 23 mmol/L (25-35)
[2019-02-14 07:04] LABS: POTASSIUM 5.9 mmol/L (3.5-5.1)
[2019-02-14] MEDS: CLINIMIX E 4.25%-5% SOLUTION 1,000 ML IV SCH (09:01)
[2019-02-14] MEDS: LANTUS INSULIN SUBQ SCH (09:14)
[2019-02-14] MEDS: MAG-OX PO SCH ×2 (09:15→20:54)
[2019-02-14] MEDS: MEGACE LIQUID PO SCH (09:15)
[2019-02-14] MEDS: REQUIP PO SCH ×2 (09:15→20:55)
[2019-02-14] MEDS: PERIDEX MT SCH ×2 (09:15→20:54)
[2019-02-14] MEDS: DEMEROL PO PRN ×3 (09:16→21:04)
[2019-02-14] MEDS: ALDACTONE PO SCH (09:17)
[2019-02-14] MEDS: LIPOSYN 20% 250 ML IV SCH (11:11)
--- NOTE | 2019-02-14 12:56 | GENERAL SURGERY PROGRESS NOTE ---
DATE: 02/14/2019 SUBJECTIVE: Doing okay. Still having intermittent nausea. Her ostomy is working. No fevers. No tachycardia. OBJECTIVE: Abdomen is soft. Incision intact. Ostomy pink, viable. DIAGNOSTIC STUDIES: White count 6, hematocrit 24. Creatinine 0.7. ASSESSMENT AND PLAN: An 78-year-old female status post total abdominal colectomy, and she had a nephrostomy tube placed, as well. We will continue to monitor her going forward. Nutritional supplementation with Glucerna. I reviewed her orders. She is on peripheral nutrition. cc: MD Mukund Robison MD
--- NOTE | 2019-02-14 14:04 | PROGRESS NOTE ---
DATE: 02/14/2019 SUBJECTIVE: The patient reports feeling fine. Restless leg syndrome is getting better when we have increased the doses of medication for that yesterday. Regarding pain control with Demerol by mouth, she reports feeling much better. OBJECTIVE: Vital Signs: Temperature 98.4, heart rate 78, respiratory rate 20, blood pressure 119/37, O2 saturation 99% on room air. General examination: This is a chronically ill- appearing 78-year-old female lying in bed, in no acute distress. Cardiovascular: S1, S2 heard. No murmurs, gallops, or rubs. Regular rate and rhythm. Respiratory: Clear bilaterally to auscultation. No work of breathing or using accessory muscles. Abdomen: Soft, mildly tender to palpation in the right upper quadrant and at the level of the operative area, but no signs of peritoneal irritation. Ileostomy tube in place in the right side. Extremities: No clubbing, cyanosis, or edema. Peripheral pulses present in both legs. Neurological: Patient is alert and oriented x3. Moves 4 extremities. LABORATORY DATA: Reviewed. ASSESSMENT AND PLAN: 1. Cecal and rectal cancer status post abdominal colectomy with diverting ileostomy, postoperative day #12. Clinically, this patient is doing fine. Pain is under control with Demerol after we have tried many pain medications, and there is no adverse reaction like restless legs syndrome. I think we will continue with current management. 2. Acute kidney injury with right hydronephrosis, resolved. Urology has been following this patient. She is stable so far. 3. History of nonalcoholic liver cirrhosis with esophageal varices. Aware. 4. History of breast cancer and uterine cancer. Aware. 5. History of transcatheter aortic valve replacement. Aware. 6. Diabetes mellitus, type 2. We will continue with sliding scale insulin. Accu-Chek before meals and also at bedtime. DISPOSITION: At this point, patient is medically stable and ready to go to [facility] whenever there is a bed. cc: Mukund Navarrete MD MTDD
--- NOTE | 2019-02-14 17:54 | GENERAL SURGERY PROGRESS NOTE ---
DATE: 02/14/2019 SUBJECTIVE: Ms. Hernandez is improving. OBJECTIVE: She is afebrile. Heart rate 85. Blood pressure 110/61. Her intake 760; output 1050. She says her p.o. Demerol is helping her pain adequately. She did not take any Ambien last night. Her legs seem better. PLAN: The plan will be to re-evaluate tomorrow. Recheck her potassium since it was up today, and then we will decide when she is going to be ready for transfer to rehab. cc: MD Mukund Patel MD
[2019-02-14] MEDS: AMBIEN PO SCH (20:56)
[2019-02-15] MEDS: CLINIMIX E 4.25%-5% SOLUTION 1,000 ML IV SCH ×2 (00:16→14:07)
[2019-02-15] MEDS: HUMALOG SUBQ SCH ×5 (00:17→20:58)
[2019-02-15 07:27] LABS: BASO# 0.01 X1000 (0.0-0.2); BASO% 0.2 % (0.0-0.8); EOS# 0.13 X1000 (0.0-0.7); EOS% 2.6 % (0.0-10.0); HEMATOCRIT 24.4 % (37.0-47.0); HEMOGLOBIN 7.7 g/dL (12.0-16.0); IMM GRAN# 0.03 X1000 (0.0-0.04); IMM GRAN% 0.6 % (0.0-0.5); LYMPH# 0.58 X1000 (1.2-3.4); LYMPH% 11.6 % (20.5-51.1); MCH 29.1 PG (27-31); MCHC 31.6 g/dL (33-37); MCV 92.1 FL (81-99); MPV 11.9 FL (7.4-10.4); NEUT# 3.66 X1000 (1.4-6.5); PLT 101 X1000 (130-400); RBC 2.65 XMIL (4.2-5.4); WBC 5.01 X1000 (4.8-10.8)
[2019-02-15 07:52] LABS: AGAP 5; BUN 32 mg/dL (8-22); CALCIUM 7.6 mg/dL (8.8-10.2); CHLORIDE 102 mmol/L (98-107); COSMO 277; CREATININE 0.6 mg/dL (0.5-0.9); ESTIMATED GFR > 60; GLUCOSE 228 mg/dL (70-104); SODIUM 131 mmol/L (136-145); TCO2 24 mmol/L (25-35)
[2019-02-15 07:57] LABS: POTASSIUM 6.4 mmol/L (3.5-5.1)
[2019-02-15] MEDS ORDERED: KAYEXALATE PO ONE (08:31)
--- NOTE | 2019-02-15 08:39 | PROGRESS NOTE ---
DATE: 02/15/2019 SUBJECTIVE: No acute events overnight. The patient states that her pain is well controlled. She has been able to be ambulatory with Physical Therapy. She denies any nausea, vomiting. She does have decreased p.o. intake and is on peripheral nutrition. Having good output through her ostomy as well as from her right nephrostomy tube. She has been voiding from her bladder without issue. OBJECTIVE: Vital signs: Temperature 98.8 degrees, heart rate 82, blood pressure 112/36, oxygen saturation 97% on room air. General: No acute distress. Resting comfortably in bed. Alert and oriented x3. Respiratory: Good respiratory effort without audible wheezing or rales. Abdomen: Soft, nontender, nondistended. No palpable hepatosplenomegaly. Ileostomy present in the right lower quadrant with good drainage. Genitourinary: No suprapubic tenderness. No CVA tenderness. Right nephrostomy tube in place draining clear yellow urine. LABORATORY DATA: Creatinine 0.6 today, sodium 131, potassium is elevated at 6.4, chloride 102, bicarb 24, BUN 32, glucose 228. White blood cell count 5, hemoglobin 7.7, hematocrit 24.4, platelets 101,000. ASSESSMENT AND PLAN: Ms. Hernandez is an 78-year-old with type 2 diabetes, aortic stenosis status post aortic valve replacement, nonalcoholic cirrhosis, gastroesophageal reflux disease, nephrolithiasis, uterine cancer, breast cancer, and recently treated colon cancer status post colectomy by Dr. Myers. The patient underwent cystoscopy, bilateral retrograde pyelograms on 02/04/2019. The patient was found to have a right ureteral injury, underwent right nephrostomy tube placement on 02/08/2019. The patient's renal function has remained stable with a creatinine 0.6. Her catheter was removed last week and she has been voiding without issue. Overall, she has improved significantly. Patient has been ambulatory and is approaching discharge to a skilled facility. From a urologic standpoint, we will continue to monitor. We will discuss with her in the outpatient setting planning for attempted repair of right ureteral injury. We will continue with nephrostomy tube for drainage at this time. We will continue to monitor. Please call with questions or concerns. cc: MD Mukund Francisco MD MTDD
[2019-02-15] MEDS: PERIDEX MT SCH (09:10)
[2019-02-15] MEDS: MEGACE LIQUID PO SCH (09:10)
[2019-02-15] MEDS: MAG-OX PO SCH (09:11)
[2019-02-15] MEDS: ALDACTONE PO SCH (09:11)
[2019-02-15] MEDS: REQUIP PO SCH (09:17)
[2019-02-15] MEDS: LANTUS INSULIN SUBQ SCH (09:19)
[2019-02-15] MEDS ORDERED: KAYEXALATE PO SCH (09:45)
--- NOTE | 2019-02-15 11:45 | PROGRESS NOTE ---
DATE: 02/15/2019 SUBJECTIVE: Patient reports feeling fine. Pain is under control and her restless legs syndrome. OBJECTIVE: Vital Signs: Temperature 98.8 degrees, heart rate 82, respiratory rate 20, blood pressure 112/36, and O2 saturation 97% on room air. General: This is a chronically ill-appearing 78-year-old female lying in bed in no acute distress. Cardiovascular: S1, S2 heard. No murmurs, gallops, or rubs. Regular rate and rhythm. Respiratory: Clear bilaterally to auscultation. No work of breathing or using accessory muscles. Abdomen: Soft, mildly tender to palpation in the right upper quadrant, and the level of the operative area but no signs of irritation. Ileostomy tube in place in the right side. Extremities: No clubbing, cyanosis, or edema. Peripheral pulses present in both legs. Neurological: The patient is alert and oriented x3. Moves all four extremities. LABORATORY DATA: Reviewed. ASSESSMENT AND PLAN: 1. Cecal and rectal cancer status post abdominal colectomy with diverting ileostomy postoperative day #13. Clinically, this patient is doing fine. Pain is under control with Demerol. At this point, we will continue with the same medication. 2. Acute kidney injury with right sided hydronephrosis resolved. Urology has been following this patient. 3. Critical illness polyneuropathy. That is unfortunately the result of this patient being in the ICU, and also not able to move around. Physical Therapy was working with this patient. She is a good candidate to go to [facility]. 4. 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 Aware. 5. History of breast cancer and uterine cancer aware. 6. History of transcatheter aortic valve replacement aware. 7. Diabetes mellitus type 2. We will continue with sliding scale insulin and Accu-Chek's before meals and also at bedtime. 8. Hyperkalemia. We have provided 1 dose of Kayexalate, but the potassium is still high. We are going to provide 3 more doses today 2 times and tomorrow morning. Then, we will recheck potassium. If that is the case, she should be ready to go from a medical standpoint. cc: MD ARABELLA Goel
[2019-02-15] MEDS ORDERED: KAYEXALATE PR ONE (11:48)
[2019-02-15] MEDS: DEMEROL PO PRN ×3 (14:07→20:57)
[2019-02-15] MEDS: ZOFRAN IV PRN (15:08)
[2019-02-15] MEDS: LIPOSYN 20% 250 ML IV SCH (15:25)
--- NOTE | 2019-02-15 15:31 | GENERAL SURGERY PROGRESS NOTE ---
DATE: 02/15/2019 SUBJECTIVE: Rukhsana's potassium was up to 6.4 today so we had order some Kayexalate. Otherwise, she seems to be progressing satisfactorily. Her appetite still is not very good but she is eating some. Her hemodynamics are okay. She did get up and walk some in the room today. PLAN: The plan will be to stop her Clinimix since it does have potassium in it, recheck her potassium tomorrow and hopefully we can transfer her to rehab on 02/16/2019. cc: MD Mukund Patel MD
[2019-02-16] MEDS: HUMALOG SUBQ SCH ×6 (00:07→21:22)
[2019-02-16] MEDS: REQUIP PO SCH ×2 (01:47→09:00)
[2019-02-16] MEDS: AMBIEN PO SCH ×2 (01:47→20:53)
[2019-02-16] MEDS: MAG-OX PO SCH ×2 (01:48→09:01)
[2019-02-16] MEDS: PERIDEX MT SCH ×2 (01:48→09:01)
[2019-02-16] MEDS: MEGACE LIQUID PO SCH (09:01)
[2019-02-16] MEDS: LANTUS INSULIN SUBQ SCH (09:53)
[2019-02-16] MEDS: LIPOSYN 20% 250 ML IV SCH (09:56)
[2019-02-16] MEDS: DEMEROL PO PRN ×2 (10:00→20:53)
[2019-02-16] MEDS: ZOFRAN IV PRN (10:01)
[2019-02-16 10:59] LABS: CALCIUM 7.7 mg/dL (8.8-10.2); CREATININE 0.9 mg/dL (0.5-0.9)
[2019-02-16 11:15] LABS: POTASSIUM 6.7 mmol/L (3.5-5.1)
[2019-02-16] MEDS: KAYEXALATE PR SCH ×2 (11:53→12:54)
[2019-02-16] MEDS ORDERED: KAYEXALATE PR SCH (12:00)
--- NOTE | 2019-02-16 15:21 | PROGRESS NOTE ---
DATE: 02/16/2019 SUBJECTIVE: Patient reports feeling fine. Denies any fever or chills. OBJECTIVE: Vital Signs: Temperature 98.4 degrees, heart rate 66, respiratory rate 24, blood pressure 111/33, and O2 saturation 98% on room air. General: This is a chronically ill-appearing 78-year-old female lying in bed in no acute distress. Cardiovascular: S1, S2 heard. No murmurs, gallops, or rubs. Regular rate and rhythm. Respiratory: Clear bilaterally to auscultation. No work of breathing or using accessory muscles. Abdomen: Soft, nontender to palpation in the right upper quadrant better in comparing with yesterday. No signs of peritoneal irritation. Ileostomy placed on the right side. Extremities: No clubbing, cyanosis, or edema. Peripheral pulses present in both legs. Neurological: Patient alert and oriented x3. Moves 4 extremities. LABORATORY DATA: Reviewed. ASSESSMENT/PLAN: 1. Cecal and rectal cancer status post abdominal colectomy with diverting ileostomy postoperative day #14. Clinically, this patient is doing fine from surgical standpoint. Patient can be discharged. Unfortunately, the potassium is high so we are trying to get it down with Kayexalate that is being given throughout the ileostomy tube. Pain is also under control with Demerol. At this point, we will continue with same management. 2. Acute kidney injury with right-sided hydronephrosis that has resolved. Patient has nephrostomy tube placed, that has been recommended to be there for at least 6 weeks total. Urology has been following this patient. 3. Critical illness polyneuropathy that is unfortunately the result of a prolonged hospitalization. The patient was also receiving antibiotics as well. In any case, physical therapy is working with this patient. She is an excellent candidate to go to [facility]. 4. History of non alcoholic liver cirrhosis with esophageal viruses aware. 5. History of breast and uterine cancer. Aware. 6. History of transcatheter aortic valve replacement. Aware. 7. Diabetes mellitus type 2. We will continue with sliding scale insulin. Accu-Chek before meals and also at bedtime. 8. Hyperkalemia. Potassium surprisingly is again high after [address] Myers has ordered 50 g of Kayexalate throughout the ileostomy tube. If that is low, patient can be discharged from a medical standpoint. cc: Mukund Navarrete MD MTDD
[2019-02-16] MEDS ORDERED: CALCIUM GLUCONATE IV PUSH ONE (15:38)
[2019-02-16] MEDS ORDERED: NS 1,000 ML IV ONE (15:38)
[2019-02-16] MEDS ORDERED: D50W SYRINGE IV SCH (15:45)
[2019-02-16] MEDS ORDERED: HUMULIN R IV SCH (15:45)
[2019-02-16] MEDS ORDERED: CALCIUM GLUCONATE 1 GM in NS 50 ML IV ONE (16:00)
[2019-02-16] MEDS ORDERED: ALBUTEROL 0.5% INH CONC FOR HYPERKALEMIA ONE (16:13)
[2019-02-16] MEDS: ALBUTEROL NEB INH SCH ×2 (16:14→19:39)
[2019-02-16] MEDS: NS 1,000 ML IV SCH (16:30)
[2019-02-16] MEDS: ALBUMIN 25% IV SCH (17:45)
[2019-02-16] MEDS: LOKELMA POWDER PACKET PO SCH (18:41)
--- NOTE | 2019-02-16 18:47 | NEPHROLOGY PROGRESS NOTE ---
DATE: 02/16/2019 SUBJECTIVE: I was asked to return to see Ms. Hernandez because of recurrent hyperkalemia. She was seen by us early in her hospitalization when she developed acute kidney injury postoperatively. She had right ureteral injury from surgery and this was treated with a double-J stent by Dr. Toledo on the . She had prompt resolution of her acute kidney injury and her creatinine has been less than 1 for a week. However, her potassium has been progressively rising over the last 5 days and is 7.0 this afternoon. We are asked to assist with her management. She has poor p.o. intake and low urine output by her estimation. Her spironolactone and her Clinimix have been discontinued. OBJECTIVE: Vital Signs: Blood pressure 111/33, heart rate 66, respirations 24. Afebrile. General: Chronically ill elderly woman, no acute distress. Skin: Warm and dry. Conjunctivae are pink. Neck: Neck veins are visible below the level of the clavicle, with slight distention with hepatojugular pressure. Heart: Regular. No gallops. Lungs: Equal. No crackles or wheezes. Abdomen: Soft, mildly tender. Bowel sounds present. Extremities: No edema, clubbing or cyanosis. IMPRESSION: Acute hyperkalemia. She does not seem to have GI blood loss. She does have a modest hyperchloremic acidosis. More likely, she has poor distal tubular sodium delivery as the cause of her hyperkalemia. I will check urine electrolytes, and then administer IV albumin and IV normal saline overnight. Will also add therapy to address her hyperkalemia in the short term. I agree with the medication changes you made. cc: MD Mukund Woo MD
--- NOTE | 2019-02-16 20:16 | GENERAL SURGERY PROGRESS NOTE ---
DATE: 02/16/2019 The patient seems to be about the same. However, her potassium continues to rise. Apparently she did not really get any Kayexalate yesterday. We will try again today with more Kayexalate. Dr. Landin is to see her. She cannot go to rehab until her potassium situation stabilizes. cc: MD Mukund Patel MD
[2019-02-17] MEDS: HUMALOG SUBQ SCH ×6 (00:32→16:54)
[2019-02-17] MEDS: ZOFRAN IV PRN (04:12)
[2019-02-17] MEDS: DEMEROL PO PRN ×2 (04:22→19:01)
[2019-02-17] MEDS: REQUIP PO SCH ×3 (06:12→21:13)
[2019-02-17] MEDS: MAG-OX PO SCH ×2 (06:12→14:32)
[2019-02-17] MEDS: PERIDEX MT SCH ×3 (06:13→21:14)
[2019-02-17 07:16] LABS: ALBUMIN 2.5 g/dL (3.5-5.0); CALCIUM 7.3 mg/dL (8.8-10.2); PHOSPHORUS 2.9 mg/dL (2.7-4.5); POTASSIUM 5.8 mmol/L (3.5-5.1)
[2019-02-17] MEDS: LANTUS INSULIN SUBQ SCH (09:17)
[2019-02-17] MEDS: ALBUMIN 25% IV SCH (09:21)
[2019-02-17] MEDS: MEGACE LIQUID PO SCH (09:21)
[2019-02-17] MEDS: LIPOSYN 20% 250 ML IV SCH (11:44)
[2019-02-17] MEDS: LOKELMA POWDER PACKET PO SCH ×2 (11:45→16:53)
[2019-02-17] MEDS: NS 1,000 ML IV SCH ×2 (13:11→18:25)
--- NOTE | 2019-02-17 14:00 | NEPHROLOGY PROGRESS NOTE ---
DATE: 02/17/2019 TIME SEEN: 0705. SUBJECTIVE: Ms. Hernandez is resting quietly in bed. Her head of the bed is elevated. She states that she is feeling well. She has been able to eat and drink. No nausea or vomiting. OBJECTIVE: Her most recent vital signs, last temperature 99.6 degrees, blood pressure 103/39, heart rate 95, respirations 18. She is on room air. Last recorded saturation is 94%. She has had 780 mL in, 1020 out, fecal device of 770 mL, a drain of 150 mL, and urine of 100. Labs: Sodium is 129, potassium 5.8, chloride is 100, CO2 22, BUN 133, creatinine 1, glucose 199, her anion gap is 7, her calcium is 7.3, phosphorus 2.9, albumin 2.5. White count 5.01, with a hemoglobin of 7.7, hematocrit 24.4, and a platelet count of 101,000 on the 28th. Physical Examination: General: This is an 78-year-old, white female resting quietly in bed. She appears in no acute distress, though chronically ill. Her skin is warm and dry. HEENT: Normocephalic, atraumatic. Conjunctivae are pale pink. She has EPIFANIO. Mucous membranes are dry. Neck: Supple. Trachea midline. No evidence of JVD. Cardiovascular: She is regular rate and rhythm. No murmur or gallop. Lungs: Clear to auscultation bilaterally. Equal excursion, on room air. Abdomen: Tender to palpation. Hypoactive bowel sounds. Her ostomy is in place along with her ileostomy, dry and intact. Extremities: Have no edema. Neurological: She is alert and oriented x2, to person and to place. ASSESSMENT AND PLAN: Hyperkalemia. Patient continues to have volume contraction which may be contributing to her poor distal tubular sodium delivery causing her hyperkalemia. She was given Lokelma yesterday evening. Her potassium has remained stable at 5.6 to 5.8. She has another dose due this morning and another this afternoon. We will re-evaluate her labs in the morning. Continue IV fluids. I would like to thank you for allowing us to follow with this patient. Dictated by LYNDSEY Gonzales for Donny Landin MD Face to face encounter, data reviewed, discussed with Dilan Bee on 02/17/19. I agree with the above assessment and plan of care. cc: LYNDSEY Gonzales MD Siddharth Patel, MD MTDD
--- NOTE | 2019-02-17 15:25 | GENERAL SURGERY PROGRESS NOTE ---
DATE: 02/17/2019 TIME SEEN: 1:11 p.m. SUBJECTIVE: Rukhsana is sitting up. She is having nausea with certain medications like the Megace and the magnesium oxide. Her potassium is down today, being down to 5.6 last night, 5.8 today. PLAN: The plan today is to stop her Megace, stop her magnesium oxide and re-evaluate her potassium tomorrow. If it does not stay below 6, we will not be able to let her go to rehab. We will stop whatever the breathing treatment that she had. We will take out her ann today as well. cc: MD Manuel Patel MD
[2019-02-17] MEDS ORDERED: CALCIUM GLUCONATE 4.65 MEQ in NS 50 ML IV ONE (20:33)
[2019-02-17] MEDS: AMBIEN PO SCH (21:13)
--- NOTE | 2019-02-17 21:28 | PROGRESS NOTE ---
DATE: 02/17/2019 INTERVAL HISTORY: She continues to have hyperkalemia. I am ordering calcium gluconate for her. She has been also started on Lokelma powder and she has received 2 doses today. I am also giving her calcium gluconate. Currently, she is denying any chest pain or shortness of breath. She is sleepy. She states she was able to come out of bed and with the use of physical therapy sit in the bedside chair. Denies any chest pain or shortness of breath. On telemetry monitoring, she has normal sinus rhythm with frequent PVCs. Her temperature is 98.7, pulse 85, respiratory rate 16, blood pressure 120/50, saturating 99% on room air. PHYSICAL EXAMINATION: General: Morbidly obese, not in any acute distress. HEENT: Oral cavity is moist. Lungs: Air entry bilaterally equal. No wheeze, rhonchi, or crackles. Cardiovascular: S1, S2 normal, irregular. She has a mild systolic murmur affecting base of the heart. No rub or gallop. Abdomen: Soft. She has a right-sided lower quadrant ileostomy and right-sided flank nephrostomy tube. Ileostomy has a brownish stool output and nephrostomy also has dark-colored urine. Mild bilateral lower extremity edema extending up to knee. Input and output suggest she had 1 liquid bowel movement today so far in the ileostomy. LABS: Hyponatremia, hyperkalemia, low bicarbonate, what appears to be acute kidney injury. Microbiology: No new data. IMAGING: No new data. ASSESSMENT AND PLAN: 1. Hyponatremia, hyponatremia, hyperkalemia, and acute kidney injury as a combination of ileostomy output and prior history of urine obstruction. The patient has been started on intravenous fluids. I will give her calcium gluconate. She has also already received Lokelma. Her IV nutrition has been stopped which could potentially have contributed to hyperkalemia. I Will follow up with BMP. Nephrology on board. 2. Acute kidney injury with right-sided hydronephrosis that has resolved. The patient has nephrostomy tube that needs to be there for about 6 weeks. Urology is following the patient. 3. 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 Today is postoperative day 15. The patient is doing okay from a surgical standpoint. 4. Poor p.o. intake. Her total parenteral nutrition has been stopped and we will continue to encourage her p.o. intake. Continue pain control as per Surgery recommendation. We have also stop her albuterol because of her tremors. 5. Critical illness polyneuropathy. Other than the result of her prolonged hospitalization, the patient is likely to be discharged to [facility] in the next 24-48 hours. 6. Others. Her history of nonalcoholic liver cirrhosis with esophageal lysis, history of breast and uterine cancer, history of transcatheter aortic valve replacement, and history of diabetes mellitus are aware and currently stable. 7. Disposition: We are awaiting normalization of potassium. She has already received doses of Lokelma. I am going to give her a dose of calcium gluconate and will follow up with potassium tomorrow. Plan of care discussed with the patient. All of her questions have been satisfactorily answered. cc: Manuel Morse MD MTDD
[2019-02-18] MEDS: HUMALOG SUBQ SCH ×4 (01:04→08:57)
[2019-02-18] MEDS: NS 1,000 ML IV SCH (01:05)
[2019-02-18] MEDS: PERIDEX MT SCH (01:07)
[2019-02-18] MEDS: REQUIP PO SCH (01:07)
[2019-02-18] MEDS: AMBIEN PO SCH (01:08)
[2019-02-18 07:14] LABS: BASO# 0.01 X1000 (0.0-0.2); BASO% 0.2 % (0.0-0.8); EOS# 0.04 X1000 (0.0-0.7); EOS% 0.7 % (0.0-10.0); HEMATOCRIT 23.5 % (37.0-47.0); HEMOGLOBIN 7.2 g/dL (12.0-16.0); IMM GRAN# 0.02 X1000 (0.0-0.04); IMM GRAN% 0.4 % (0.0-0.5); LYMPH# 0.31 X1000 (1.2-3.4); LYMPH% 5.8 % (20.5-51.1); MCH 28.2 PG (27-31); MCHC 30.6 g/dL (33-37); MCV 92.2 FL (81-99); MONO# 0.54 X1000 (0.11-0.59); MONO% 10.1 % (1.7-9.3); MPV 11.6 FL (7.4-10.4); NEUT# 4.45 X1000 (1.4-6.5); NEUT% 82.8 % (42.2-75.2); PLT 105 X1000 (130-400); RBC 2.55 XMIL (4.2-5.4); RDW 15.4 % (11.5-14.5); WBC 5.37 X1000 (4.8-10.8)
[2019-02-18 07:41] LABS: ALBUMIN 2.8 g/dL (3.5-5.0); CALCIUM 7.3 mg/dL (8.8-10.2); CREATININE 0.9 mg/dL (0.5-0.9); PHOSPHORUS 2.5 mg/dL (2.7-4.5); POTASSIUM 5.4 mmol/L (3.5-5.1)
--- NOTE | 2019-02-18 09:44 | DISCHARGE SUMMARY ---
ADMISSION DATE: 01/31/2019 DISCHARGE DATE: 02/18/2019 PRIMARY DISCHARGE DIAGNOSES: 1. Synchronous cancers of the colon, the cecum and the rectum. 2. Acute kidney injury that has now resolved. 3. Right ureteral injury treated with nephrostomy tube. 4. Cirrhosis of the liver. 5. Recent ventricular ectopy now resolved. 6. Mild hyperkalemia now improved. PROCEDURES DONE: 1. Included total abdominal colectomy with ileorectostomy and a diverting ileostomy. 2. Cystoscopy with attempted retrograde. 3. Placement of a percutaneous nephrostomy tube by Radiology. CONSULTATIONS: Accomplished with the hospitalist, the data lead, the urologist and the internal communications writer. HISTORY: This 78-year-old with synchronous cancers involving the cecum as well as the rectum. Total abdominal colectomy was indicated. She was taken to the operating room after outpatient prep on the and underwent the procedure. The procedure was quite difficult due to the patient's cirrhosis, ascites and there were no planes from her previous surgery and radiation. Postoperatively, she was maintained in the intensive care unit. She did have some ventricular ectopy for which she was seen by Cardiology and was treated appropriately and this resolved. She also had acute kidney injury and Dr. Landin saw her. This was treated with hydration and did eventually resolve. It became evident she had a right ureteral injury and Dr. Toledo saw her. A percutaneous nephrostomy tube was placed which diverted her urinary stream. Gradually her ileus resolved and we started her on liquids which she tolerated and we advanced her diet. We did give her an appetite stimulative to help stimulate her appetite, but her appetite really did not progress well in the hospital. We did give her Clinimix for awhile for nourishment but because of her transient hyperkalemia, we had to stop that as well. Her hyperkalemia did respond to Kayexalate and hydration. Finally, her electrolytes stabilized and her p.o. intake was adequate. Her kidney injury was completely resolved so it was felt she could be transferred to rehab for continued rehabilitation and to get her strength back. She will return to see me in the office upon discharge from her rehab. cc: MD Manuel Patel MD
[2019-02-18] MEDS: LANTUS INSULIN SUBQ SCH (10:02)
[2019-02-18] MEDS: ALBUMIN 25% IV SCH (10:13)
[2019-02-18 11:52] VITALS: BP 119/37
[2019-02-18] MEDS: DEMEROL PO PRN (13:42)
--- NOTE | 2019-02-18 15:35 | GENERAL SURGERY PROGRESS NOTE ---
DATE: 02/18/2019 SUBJECTIVE: It is now 2 and a half weeks after her total abdominal colectomy with ileostomy complicated by ureteral injury. She is doing better. Her nausea is resolved. Temperature is 99.2 degrees, heart rate 91, blood pressure 116/50. She has taken her cereal this morning satisfactorily. Her ileostomy was functioning. Her nephrostomy tube is functioning as well. LABS: Today, her white count is 5000, hemoglobin is 7, hematocrit 23.5, platelet count is 105. Sodium 134, potassium is down to 5.4, carbon dioxide 19, BUN 30, creatinine 0.9. Sugars were in the low 200s. Albumin is up to 2.8, magnesium 2.2, phosphorus 2.5. PLAN: The plan is to allow her to go to rehab today. She will return to see me in the office when she is discharged from rehab. cc: MD Manuel Patel MD
--- NOTE | 2019-02-18 16:12 | PROGRESS NOTE ---
DATE: 02/18/2019 INTERVAL HISTORY: No acute event overnight. Her magnesium was within acceptable range. In the morning time, her CBC suggestive of stable hemoglobin. Her potassium is decreasing and Surgery team is planning to discharge her. SUBJECTIVE: Patient denies chest pain, shortness of breath. She states that she sees Dr. Galvan for her bioprosthetic valve, she had a transcatheter aortic valve replacement in 2017. She has had frequent premature ventricular contractions. VITAL SIGNS: Temperature 99.1 degrees, pulse 107, respiratory rate 24, blood pressure 120/37. She is saturating 100% on room air. PHYSICAL EXAMINATION: General: Does not appear in any acute distress. HEENT: Oral cavity is moist. Lungs: Air entry bilaterally equal. No wheeze, rhonchi, or crackles. Cardiovascular: S1, S2 normal. No murmur, rub, or gallop except mild systolic murmur at the base of the heart. Abdomen: Soft. She has a right-sided lower quadrant ileostomy and right-sided flank nephrostomy tube. Spelter have been removed from the laparotomy scar. The ileostomy has brownish output. Extremities: She has bilateral lower extremity edema extending up to mid turcios level. LABORATORY DATA: Suggestive of hemoglobin of 7.2 which is stable, normal platelet count of 105,000 which has been chronic for her. She does have improvement in hyponatremia, improvement in hyperkalemia, and it is in acceptable range. No new microbiological or imaging data. ASSESSMENT AND PLAN: 1. Hyponatremia, hyperkalemia and acute kidney injury, now resolved after intravenous fluid resuscitation and potassium binding agents. The patient should get a repeat BMP in about 3 days' time in the rehab and she should get additional dose of Lokelma. Her intravenous nutrition could have contributed to it, which has been stopped now. Continue oral intake as per Surgery recommendation. 2. Acute kidney injury on presentation with right-sided hydronephrosis. That has resolved. The patient needs to keep the nephrostomy tube for about 6 weeks and should see a urologist as an outpatient. 3. 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 Today is postoperative day 16. Diet as per Surgery recommendation. Pain medication also as per Surgery recommendation. 4. Hospital-acquired critical illness induced polyneuropathy and tremors related to albuterol use. The patient is likely to go to [facility] today. 5. Other history including nonalcoholic liver cirrhosis with esophageal varices, history of breast cancer and uterine cancer, history of transcatheter aortic valve replacement, and history of diabetes mellitus are currently stable. 6. The patient should be discharged on aspirin and she should get a repeat CBC and BMP outpatient. Based on that, she should get further potassium binding agents. Medical team will sign off. Thanks for allowing us to take care of this patient. Plan of care was discussed with the patient. She was allowed to ask questions. All of her questions have been satisfactorily answered. cc: Manuel Morse MD
--- NOTE | 2019-02-18 17:22 | NEPHROLOGY PROGRESS NOTE ---
DATE: 02/18/2019 SUBJECTIVE: She is anticipating discharge today. Sitting up. Feeling well. She is going to rehab at [facility]. OBJECTIVE: Vital Signs: Blood pressure 116/50, heart rate 91, respirations 18, afebrile. General: No acute distress. Skin: Warm and dry. Conjunctivae are pink. Neck: Neck veins are not distended. Heart: Regular. Lungs: Equal. No crackles. Abdomen: Soft, nontender. Bowel sounds present. Extremities: No edema. IMPRESSION: Hyperkalemia. 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 She is off her spironolactone, and her potassium has improved. I counseled her to increase her fluid intake as well as salt intake to some degree. This can be monitored at [facility]. cc: MD Manuel Woo MD
== END 2019-02-18 14:22 | DRG 330 ==
LOC: SURHOLD 11:10 → ICU 18:46 → 4N 02-08 13:40
PROVIDERS: ADMIT Internal Medicine; ATTEND Surgery
CPT/HCPCS: 36415; 36430; 36569; 50430; 71010; 71045; 74176; 74420; 76700; 76770; 76775; 80048; 80053; 80069; 81001; 82378; 82550; 82570; 82948; 83735; 84132; 84300; 84484; 84540; 85014; 85018; 85025; 85610; 85730; 86850; 86900; 86901; 86920; 88305; 88309; 93005; 93010; 93306; 94640; 94761; 97110; 97116; 97162; 97530; A9270; C9290; J0330; J0610; J0690; J1100; J1170; J1335; J1815; J2370; J2405; J3010; J3475; J3480; J7030; J7040; J7042; J7050; J7120; P9016; P9017; P9035; P9047; Q9966; Q9967; S0020; S0179; XXXXX